=== PATIENT | female | born 2000 ===

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

== ENCOUNTER 2023-11-13 20:10 | Emergency (ER) | payer OTHER, SELFPAY ==
--- NOTE | 2023-11-13 | ECG_ITS ---
Test Reason : CP Blood Pressure : / mmHG Vent. Rate : 052 BPM Atrial Rate : 052 BPM P-R Int : 156 ms QRS Dur : 070 ms QT Int : 454 ms P-R-T Axes : 077 044 043 degrees QTc Int : 422 ms Sinus bradycardia Otherwise normal ECG No previous ECGs available Referred By: Generic ED Physician Electronically Signed By:ELVA SOLIS MD
[2023-11-13 20:54] VITALS: BP 106/68; PULSE 69; RESP 17; TEMP 36.7; O2SAT 98; BMI 26.9
[2023-11-13 21:32] LABS: Hematocrit 36.7 % (37.0-47.0); Hemoglobin 12.6 g/dl (12.0-16.0); Mean Corpuscular HGB Conc 34.3 g/dl (31.0-35.0); Mean Corpuscular Hemoglobin 30.6 pg (27.0-33.0); Mean Corpuscular Volume 89.1 fL (80.0-98.0); Mean Platelet Volume 10.8 fL (9.4-12.3); Red Blood Count 4.12 X10*6/uL (4.20-5.50); Red Cell Distribution Width 12.9 % (11.0-16.0)
[2023-11-13 21:33] LABS: WBC ABN SCTR FOR CBC 1
[2023-11-13 21:46] LABS: Alanine Aminotransferase 31 U/L (0-31); Albumin Level 4.2 g/dL (3.5-5.0); Alkaline Phosphatase 83 U/L (39-117); Anion Gap 12 (12-20); Aspartate Amino Transferase 28 U/L (5-31); Bilirubin Total 2.7 mg/dL (0.0-1.0); Blood Urea Nitrogen 13 mg/dL (9-16); Calcium 9.6 mg/dL (8.4-10.2); Carbon Dioxide 23 mmol/L (22-29); Chloride 106 mmol/L (96-108); Creatinine Clr Calc Pharmacy 96.4; Estimated Glomerular Filt Rate > 60; Glucose Random 102 mg/dL (60-115); Lipase 10 U/L (8-78); Magnesium 1.8 mg/dL (1.6-2.6); Potassium 3.3 mmol/L (3.3-5.1); Sodium 138 mmol/L (135-145); Total Protein 7.7 g/dL (6.5-8.0)
[2023-11-13 21:47] LABS: IDNOW Serial# 08D9AD1C; Influenza A Negative (Negative); Influenza B2 Negative (Negative)
[2023-11-13 21:53] LABS: Band Neutrophils Percent 0 % (3-5); Lymphocytes Percent Manual 10 % (20-40); Monocytes Percent Manual 3 % (2-11); Neutrophils Percent Manual 87 % (45-73); RBC Morphology NORMAL
[2023-11-13 21:54] LABS: Large Platelet PRESENT; Monocytes Absolute Manual 0.3 X10*3/uL (0.1-1.2); Neutrophils Absolute Manual 8.9 X10*3/uL (2.0-8.3); Platelet Count 370 X10*3/uL (160-400); Platelet Estimate NORMAL (NORMAL); Platelet Morphology Comment NORMAL; White Blood Count 10.2 X10*3/uL (4.8-10.8)
[2023-11-13 21:55] LABS: Troponin-I High Sensitivity < 2.7 ng/L (<3.5-17.0)
[2023-11-13] MEDS: 0.9 % Sodium Chloride 1,000 ML 999 ML IV ×2 (23:53→23:58)
[2023-11-13] MEDS: Ketorolac Tromethamine 15 MG/ML VIAL IVPUSH (23:57)
[2023-11-13] MEDS: ondansetron HCL 4 MG/2 ML VIAL IVPUSH (23:57)
[2023-11-14 00:01] LABS: HCG Quantitative < 2 mIU/mL
--- NOTE | 2023-11-14 00:08 | ED.NAVMDI ---
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 No CP/SOB. No GIB symptoms. She did try to go to [place] but she felt weak and dizzy and didn't want to wait. She has not traveled or been on abx. MD elicited complaint: nausea, vomiting and diarrhea Onset (ago): hour(s) (early this AM 6 or 7am) Description of vomiting: food contents, watery and bilious Description of diarrhea: watery Associated nausea: Yes Associated abdominal pain: Yes Location of pain: diffuse Radiation: diffuse Pain consistency: intermittent Severity: mild Quality: aching Exacerbating factors: eating Relieving factors: none Context: sick contacts Associated symptoms: loss of appetite, malaise and nausea/vomiting Related Data Previous Rx's Medication Instructions Recorded ondansetron 4 mg disintegrating 4 mg PO Q8H PRN nausea and 11/14/23 tablet vomiting #20 tabs Allergies Allergy/AdvReac Type Severity Reaction Status Date / Time Latex, Natural Rubber Allergy Anaphylaxis Verified 11/13/23 20:53 shellfish derived Allergy Anaphylaxis Verified 11/13/23 20:53 Review of Systems Review of Systems: Constitutional : No Weight loss, No Fever, No Chills ENT/Mouth : No sore throat, No Rhinorrhea Eyes: No Swelling, No Redness Cardiovascular : No Chest Pain, No SOB, NoEdema Respiratory : No Cough, No Sputum, No Wheezing Gastrointestinal : Positive Nausea, Positive Vomiting, positive Diarrhea, positive abdominal Pain, No Hematochezia, No Melena Genitourinary : No Dysuria, No Urinary Frequency, No Hematuria, No Urgency Musculoskeletal : No joint pain, No Myalgias, No Joint Swelling Skin : No Skin Lesions, No rash Neuro : No Weakness, No Numbness, No Dizziness, No Headache, pos syncope Psych : No Anxiety/Panic, No Depression Heme/Lymph: No Bruising, No Lymphadenopathy Endocrine : No Polyuria, No Polydipsia All other systems reviewed and are negative. Gastrointestinal: Gastrointestinal: Reports nausea PMFSH Social History Social History Advance Directives: No Advance Directives Information Provided: Yes Physical Exam Vital Signs: Vital Signs: Last Vital Signs Temp 98.0 F 11/13/23 20:54 Pulse 60 11/14/23 02:07 Resp 16 11/14/23 02:07 BP 122/65 11/14/23 02:07 Pulse Ox 98 11/14/23 02:07 O2 Del Method Room Air 11/14/23 02:07 BMI result Body Mass Index 26.9 Appearance: Alert. Oriented X3. No acute distress. Eyes: Pupils equal, round and reactive to light. ENT: Pharynx mildly dry MM Neck: Normal inspection. Neck supple. CVS: Normal heart rate and rhythm. Pulses normal. Respiratory: No respiratory distress. Breath sounds normal. Abdomen: Soft and non-tender. Skin: Skin warm and dry. Normal skin color. Normal skin turgor. Extremities: No lower extremity edema. No calf ttp Neuro: Oriented X 3. No motor deficit. No sensory deficit. Medications Administered Discontinued Medications Generic Name Dose Route Start Last Admin Trade Name Freq PRN Reason Stop Dose Admin Sodium Chloride 1,000 mls @ 999 mls/hr 11/13/23 23:45 11/14/23 00:54 Ns IV 11/14/23 00:45 Infused .Q1H1M PRICILA Infusion Sodium Chloride 1,000 mls @ 999 mls/hr 11/13/23 23:45 11/14/23 00:59 Ns IV 11/14/23 00:45 Infused .Q1H1M PRICILA Infusion Ketorolac Tromethamine 15 mg 11/13/23 23:47 11/13/23 23:57 Ketorolac Tromethamine 15 Mg/Ml Vial IVPUSH 11/13/23 23:48 15 mg ONCE ONE Administration Ondansetron HCl 4 mg 11/13/23 23:47 11/13/23 23:57 Ondansetron Hcl 4 Mg/2 Ml Vial IVPUSH 11/13/23 23:48 4 mg ONCE ONE Administration Medical Decision Making Medical Decision Making MDM Narrative: 23 yo female with no sig PMH other than prior lap cholecystectomy here with c/o n/v/d all AM then tried to get up and felt weak in bathroom no injury but notes a brief LOC lasting seconds - no CP/SOB. She still feels weak and dehydrated. 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 No GIB symptoms reported. Differential Diagnosis Differential Diagnoses: The differential diagnosis associated with the presentation includes viral syndrome, , dehydration Admission/Observation Consideration of admission/observation: Escalation of care including admission/observation considered feels much better after medications - stable for DC at this time Lab Data MDM Lab Attestation statement: I reviewed the patient's lab results. 11/13/23 21:14 11/13/23 21:14 Labs: Lab Results 11/13/23 11/14/23 Range/Units 21:14 02:23 WBC 10.2 (4.8-10.8) X10*3/uL RBC 4.12 L (4.20-5.50) X10*6/uL Hgb 12.6 (12.0-16.0) g/dl Hct 36.7 L (37.0-47.0) % MCV 89.1 (80.0-98.0) fL MCH 30.6 (27.0-33.0) pg MCHC 34.3 (31.0-35.0) g/dl RDW 12.9 (11.0-16.0) % Plt Count 370 (160-400) X10*3/uL MPV 10.8 (9.4-12.3) fL Immature Gran % (Auto) Cancelled Neut % (Auto) Cancelled Lymph % (Auto) Cancelled [place] % (Auto) Cancelled Eos % (Auto) Cancelled Baso % (Auto) Cancelled Lymph # (Auto) Cancelled [place] # (Auto) Cancelled Eos # (Auto) Cancelled Baso # (Auto) Cancelled Abs Immat Gran (auto) Cancelled Absolute Neuts (auto) Cancelled Absolute Nucleated RBC 0.000 (0.0-0.012) X10*3/uL Nucleated RBC % (auto) 0.0 (0.0-0.2) /100WBC Neutrophils % (Manual) 87 H (45-73) % Band Neutrophils % 0 L (3-5) % Lymphocytes % (Manual) 10 L (20-40) % Monocytes % (Manual) 3 (2-11) % Abs Neuts (Manual) 8.9 H (2.0-8.3) X10*3/uL Lymphocytes # (Manual) 1.0 L (1.2-4.9) X10*3/uL Monocytes # (Manual) 0.3 (0.1-1.2) X10*3/uL Platelet Estimate NORMAL (NORMAL) Large Platelets PRESENT Plt Morphology Comment NORMAL RBC Morphology NORMAL Sodium 138 (135-145) mmol/L Potassium 3.3 (3.3-5.1) mmol/L Chloride 106 (96-108) mmol/L Carbon Dioxide 23 (22-29) mmol/L Anion Gap 12 (12-20) BUN 13 (9-16) mg/dL Creatinine 0.82 (0.5-1.4) mg/dL Estim Creat Clear Calc 96.4 Estimated GFR > 60 Random Glucose 102 (60-115) mg/dL Calcium 9.6 (8.4-10.2) mg/dL Magnesium 1.8 (1.6-2.6) mg/dL Total Bilirubin 2.7 H (0.0-1.0) mg/dL AST 28 (5-31) U/L ALT 31 (0-31) U/L Alkaline Phosphatase 83 (39-117) U/L Troponin I High Sens < 2.7 (<3.5-17.0) ng/L Total Protein 7.7 (6.5-8.0) g/dL Albumin 4.2 (3.5-5.0) g/dL Lipase 10 (8-78) U/L Beta HCG, Quant < 2 mIU/mL Urine Color Dark Yellow Urine Appearance Clear Urine pH 6.5 (5.0-9.0) Ur Specific [place] >= 1.030 H (1.005-1.025) Urine Protein 30 (1+) H (Neg-Trace) mg/dL Urine Glucose (UA) Negative (Negative) mg/dL Urine Ketones 80 (Negative) mg/dL Urine Blood Negative (Negative) Urine Nitrite Negative (Negative) Ur Leukocyte Esterase Negative (Negative) Urine RBC 0-2 (0-2) /HPF Urine WBC 0-5 (0-5) /HPF Ur Squamous Epith Cells 0-2 (0-2) /HPF Urine Bacteria None Seen (None Seen) Hyaline Casts 0-2 (0-2) /LPF Influenza Type A (ZENAIDA) Negative (Negative) Influenza Type B (ZENAIDA) Negative (Negative) Influenza A & B Note See Note Independent Interpretation I performed an independent interpretation of an: EKG Interpretation: Rate: 52 Rhythm: sinus bradycardia [place]: normal Normal P waves. Normal IRIS. Normal QRS complex. ST T wave : normal no ANJELICA qTC: 422 prior studies: no acute ischemia The study has been interpreted contemporaneously by me. . Prescription Management I considered prescription management with: Other Discharge Plan Discharge Clinical Impression: Vasovagal syncope Vomiting Qualifiers: Vomiting type: unspecified Nausea presence: with nausea Qualified Code(s): R11.2 - Nausea with vomiting, unspecified Patient Disposition: Home, Self-Care Instructions: Syncope (ED), Acute Nausea and Vomiting (ED) Additional Instructions: stay hydrated and rest. advance diet slowly over 48 hours. return for worsening symptoms or concerns. repeat liver function tests with your doctor next week - bilirubin slightly up suspect vomiting and viral Prescriptions: New ondansetron 4 mg tablet,disintegrating 4 mg PO Q8H PRN (Reason: nausea and vomiting) Qty: 20 0RF Stand Alone Forms: Work/School Release Interventions: ED Discharge Assessment Last Done: 11/14/23 02:33 Discharge Date/Time: 11/14/23 02:33
[2023-11-14 00:14] VITALS: BP 120/71; PULSE 76; RESP 16; O2SAT 100
--- OUTSIDE RECORDS SUMMARY | 2023-11-14 00:41 | XMS_ITS | Continuity of Care Document ---
Author Name Unknown Organization [facility] Address [address] [place] [id number]- Care Team Providers Care Family Educator Name Role Phone Christine Wood MD Primary Care Physician [phone] Encounter [facility] Date(s): 05/26/22 - 06/25/[address] [address]- Allergies, Adverse Reactions, Alerts Substance Reaction Severity Status shellfish Active Grass Active Latex Active Medications metroNIDAZOLE 500 mg oral tablet 1 tablet = 500 mg, By Mouth, Every 12 hours, # 14 tablet, 0 Refills, Maintenance, 04/02/22 15:44:00EDT, Tablet, [id number], Partial fill upon patient request if the prescription is for a schedule II opioid drug., 158, cm, 04/01/22 14:49:00 ED... Start Date: 04/02/22 Stop Date: 04/09/22 Status: Ordered Valtrex 500 mg oral tablet 500 mg, 1, tablet, By Mouth, Daily, Take with onset of symptoms., # 90 tablet, Refills 4, Tot. Refills 4, Maintenance, 11/05/22 14:53:00 EST, Route to Pharmacy Electronically, [id number], Partial fill upon patient request if the prescription i... Start Date: 11/05/22 Status: Ordered Valtrex 500 mg oral tablet 500 mg, 1, tablet, By Mouth, Daily, # 90 tablet, Refills 4, Tot. Refills 4, Acute 11/05/22 14:53:00EST, 11/06/21 14:53:00 EST, Route to Pharmacy Electronically, [id number], Partial fill uponpatient request if the prescription is for a schedu... Start Date: 11/06/21 Stop Date: 11/05/22 Status: Ordered Xulane 150 mcg-35 mcg/24 hr transdermal film, extended release 1 patch, Topically, Every week, APPLY 1 PATCH EVERY WEEK EACH WEEK X 3 WEEKS, THEN 1 WEEK OFF DIRECTED, # 9 each, 4 Refills, Maintenance, 11/06/21 14:52:00 EST, [facility]/pharmacy #[id number], Partial fill upon patient request if the prescription is for a sche... Start Date: 11/06/21 Status: Ordered Problem List Condition Effective Dates Status Health Status Inform ant Herpes simplex(Confirmed) Active Social History Social History Type Response Smoking Status Never smoker entered on: 05/24/15 Sex
--- OUTSIDE RECORDS SUMMARY | 2023-11-14 00:41 | XMS_ITS | Continuity of Care Document ---
Author Name Unknown Organization [facility] Address [address] [place] [id number]- Care Team Providers Care Principal Security Architect Name Role Phone Christine Wood MD Primary Care Physician Encounter [facility] Date(s): 05/26/22 - 06/28/[address] [address]- Attending Physician: Vale Watts CNM Admitting Physician: Vale Watts CNM Allergies, Adverse Reactions, Alerts Substance Reaction Severity Status shellfish Active Grass Active Latex Active Medications metroNIDAZOLE 500 mg oral tablet 1 tablet = 500 mg, By Mouth, Every 12 hours, # 14 tablet, 0 Refills, Maintenance, 04/02/22 15:44:00EDT, Tablet, [facility]acy #[id number], Partial fill upon patient request if the prescription is for a schedule II opioid drug., 158, cm, 04/01/22 14:49:00 ED... Start Date: 04/02/22 Stop Date: 04/09/22 Status: Ordered Valtrex 500 mg oral tablet 500 mg, 1, tablet, By Mouth, Daily, Take with onset of symptoms., # 90 tablet, Refills 4, Tot. Refills 4, Maintenance, 11/05/22 14:53:00 EST, Route to Pharmacy Electronically, [facility]/pharmacy #[id number], Partial fill upon patient request if the prescription i... Start Date: 11/05/22 Status: Ordered Valtrex 500 mg oral tablet 500 mg, 1, tablet, By Mouth, Daily, # 90 tablet, Refills 4, Tot. Refills 4, Acute 11/05/22 14:53:00EST, 11/06/21 14:53:00 EST, Route to Pharmacy Electronically, [facility]/pharmacy #[id number], Partial fill uponpatient request if the prescription is for a schedu... Start Date: 11/06/21 Stop Date: 11/05/22 Status: Ordered Xulane 150 mcg-35 mcg/24 hr transdermal film, extended release 1 patch, Topically, Every week, APPLY 1 PATCH EVERY WEEK EACH WEEK X 3 WEEKS, THEN 1 WEEK OFF DIRECTED, # 9 each, 4 Refills, Maintenance, 11/06/21 14:52:00 EST, [facility]/pharmacy #[id number], Partial fill upon patient request if the prescription is for a sche... Start Date: 11/06/21 Status: Ordered Problem List Condition Effective Dates Status Health Status Inform ant Herpes simplex(Confirmed) Active Social History Social History Type Response Smoking Status Never smoker entered on: 05/24/15 Sex Care Team Personnel Name: Christine Wood MD Address: [address] [place] [address]
--- OUTSIDE RECORDS SUMMARY | 2023-11-14 00:41 | XMS_ITS | Continuity of Care Document ---
Author Name Unknown Organization [facility] Address [address] [place] [id number]- Care Team Providers Care Liquor Grinder Mill Operator Name Role Phone Christine Wood MD Primary Care Physician [phone] [facility] Date(s): 03/31/21 - 04/07/[address] [id number] Attending Physician: Chani Birmingham MD Allergies, Adverse Reactions, Alerts Substance Reaction Severity Status shellfish Active Grass Active Latex Active Medications Xulane 150 mcg-35 mcg/24 hr transdermal film, extended release APPLY 1 PATCH EVERY WEEK EACH WEEK X 3 WEEKS, THEN 1 WEEK OFF DIRECTED Start Date: 10/14/20 Status: Ordered Zofran 4 mg oral tablet 1 tablet = 4 mg, By Mouth, Every 8 hours, # 6 tablet, 0 Refills, Maintenance, 10/11/20 16:20:00 EST, Tablet, [id number], Partial fill upon patient request if the prescription is for a schedule II opioid drug., 158, cm, 10/11/20 13:41:00 EST, H... Start Date: 10/11/20 Status: Ordered Results Orders for Microbiology Reports Name Date Urine Culture (URINE CULTURE) 03/01/21 Microbiology Reports TEST:Urine Culture STATUS:Auth (Verified) BODY SITE: SOURCE:URINE COLLECTED DATE/TIME:03/01/21 9:45 AM Urine Culture SPECIMEN DESCRIPTION : URINE SPECIAL REQUESTS : NONE CULTURE : NO GROWTH REPORT STATUS : FINAL 03/05/2021 Social History Social History Type Response Smoking Status Never smoker entered on: 05/24/15 Sex
--- OUTSIDE RECORDS SUMMARY | 2023-11-14 00:41 | XMS_ITS | Continuity of Care Document ---
Author Name Unknown Organization [facility] Address [address] [place] [address]- Care Team Providers Care Passenger Representative Name Role Phone Not on Staff, PCP Primary Care Physician Unavail able Encounter [facility] Date(s): 06/27/23 - 06/27/[address] [address]- Discharge Disposition: A-D/C Home Attending Physician: Johnson Del Cid MD Admitting Physician: Johnson Del Cid MD Referring Physician: Not on Staff, Referring MD Allergies, Adverse Reactions, Alerts Substance Reaction Severity Status shellfish Active Grass Active Latex Active Immunizations Given and Recorded Vaccine Date Status Refusal Reason tetanus/diphtheria/pertussis, acel(Tdap) 07/12/21 Recorded Hepatitis A Pediatric Vaccine 06/20/20 Recorded Hepatitis A Pediatric Vaccine 11/25/19 Recorded meningococcal group B vaccine 02/22/20 Recorded meningococcal group B vaccine 11/25/19 Recorded Meningococcal Conjugate Vaccine 11/25/19 Recorded Human Papillomavirus Vaccine 11/25/19 Recorded Medications metronidazole topical 0.75% gel with applicator 1 application, Vaginally, Daily at bedtime, # 70 Gm, 0 Refills, Soft Stop, 04/15/23 13:46:00 EDT, Gel, [facility]/pharmacy #[id number], Partial fill upon patient request if the prescription is for a schedule II opioid drug., 1 application Vaginally Daily at bedtim... Start Date: 04/15/23 Stop Date: 04/20/23 Status: Ordered Valtrex 500 mg oral tablet 500 mg, 1, tablet, By Mouth, Daily, Take with onset of symptoms., # 90 tablet, Refills 4, Tot. Refills 4, Maintenance, 11/05/22 14:53:00 EST, Route to Pharmacy Electronically, [facility]/pharmacy #[id number], Partial fill upon patient request if the prescription i... Start Date: 11/05/22 Status: Ordered Xulane 150 mcg-35 mcg/24 hr transdermal film, extended release 1 film, Topically, Once, Maintenance, # 3 each, 11 Refills, Soft Stop, 01/16/23 8:55:00 EDT, [facility]/pharmacy #[id number], Partial fill upon patient request if the prescription is for a schedule II opioid drug., 1 film Topically Once,Instr:Maintenance, 160, cm,... Start Date: 01/16/23 Status: Ordered Problem List Condition Confirmation Course Effective Dates Status Health St atus Informant COVID-19 1 Confirmed 11/07/22 Active Herpes simplex Confirmed Active 1Problem added by Discern Expert Vital Signs Most recent to oldest [Reference Range]: 1 2 Height 160 cm (06/27/23 9:39 AM) 160 cm (06/27/23 9:38 AM) Weight 69.7 kg (06/27/23 9:39 AM) 69.7 kg (06/27/23 9:38 AM) Oxygen Saturation [94-100 %] 98 % (06/27/23 12:22 PM) 98 % (06/27/23 9:39 AM) Pulse Rate [55-90 bpm] 89 bpm (06/27/23 12:22 PM) 90 bpm (06/27/23 9:39 AM) Body Mass Index [18.5-24.99 kg/m2] 27.23 kg/m2 *H* (06/27/23 9:38 AM) Blood Pressure [90-138/55-84 mm Hg] 119/ 99mm Hg (06/27/23 12:22 PM) 116/73mm Hg (06/27/23 9:39 AM) Respiratory Rate [16-30 br/min] 17 br/mi n (06/27/23 12:22 PM) 18 br/min (06/27/23 9:39 AM) Temperature [96.8-100.4 DegF] 98 DegF (06/27/23 9:39 AM) Mode of Delivery (Oxygen) Room air (06/27/23 12:22 PM) Room air (06/27/23 9:39 AM) Blood pressure sites Arm, left (06/27/23 12:22 PM) Arm, left (06/27/23 9:39 AM) Temperature Route Temporal (06/27/23 9:39 AM) Dry Weight 69.7 kg (06/27/23 9:39 AM) 69.7 kg (06/27/23 9:38 AM) Dry Weight Obtained Via Standing scale (06/27/23 9:38 AM) Social History Social History Type Response Smoking Status Never smoker entered on: 05/24/15 Sex Note * Phan English: PERFORM Event Display: Patient Education Leaflets Authored Date: [id number] Hives (Adult) ?? [id number] Hives (Adult) Hives are pink or red bumps on the skin. These bumps are also known as wheals. The bumps can itch, burn, or sting. Hives can occur anywhere on the body. They vary in size and shape and can form in clusters. Individual hives can appear and go away quickly. New hives may develop as old ones fade. Hives are common and usually harmless. They are not contagious. Occasionally, hives are a sign of a serious allergy. Hives may be caused by an allergic reaction. They may occur from: ??? Certain foods, such as shellfish, nuts, tomatoes, or berries ??? Contact with something in the environment, such as pollens, animals, or mold ??? Certain medicines ??? Sun or cold air ??? Viral infections, such as a cold or the flu ??? Bacterial infection, such as strep throat If the hives continue to come and go over many weeks without any other symptoms (chronic hives), the cause may be very hard to figure out. You may be prescribed medicines to ease swelling and itching. Follow all instructions when using these medicines. The hives will usually fade in a few days. But they can last for weeks or months. Home care Follow these tips: ??? Try to find the cause of the hives and eliminate it. Discuss possible causeswith your healthcare provider. Your healthcare provider may ask you to keep track of the food you eat and your lifestyle to help find the cause of the hives. ??? Don???t scratch the hives. Scratchingwill delay healing. To reduce itching, apply cool, wet compresses to the skin. ??? Dress in soft, loose cotton clothing. ??? Don???t bathe in hot water. This can make the itching worse. ??? Apply an ice pack or cool pack wrapped in a thin towel to your skin. This will help reduce redness and itching. But if your hives were caused by exposure to cold, then do not apply more cold to them. ??? You may use over-the counter antihistamines to reduce itching. Some older antihistamines, such as diphenhydramine and chlorpheniramine, are inexpensive. But they need to be taken often and may make you sleepy. They are best used at bedtime. Don???t use diphenhydramine if you have glaucoma or have troubleurinating because of an enlarged prostate. Newer antihistamines, such as loratadine, cetirizine, lev ocetirizine, and fexofenadine, are generally more expensive. But they tend to have fewer side effects. They can be taken less often. ??? Another type of antihistamine is used to treat heartburn. Thistype includes nizatidine, famotidine, and cimetidine. These are sometimes used along with the above antihistamines if a single medicine is not working. ??? If the hives are severe and you do not respond well to other medicines, you may be given a steroid, such as prednisone, to take for a short time. Follow all instructions carefully when taking this medicine. Tell your healthcare provider about any side effects. ?? Follow-up care Follow up with your healthcare provider if your symptoms don't get better in 2 days. Ask your provider about allergy testing if you have had a severe reaction or have had several episodes of hives. Allergy testing may help figure out what you are allergic to. You may need blood tests, a urine test,or skin tests. ?? When to get medical advice Call your healthcare provider right away??if any of these occur: ??? Fever of 100.4??F (38.0??C) orhigher, or as advised ??? Redness, swelling, or pain ??? Bad-smelling fluid coming from the rash ?? Call 911 Call 911 if any of the following occur: ??? Swelling of the face, throat, or tongue ??? Trouble breathing or swallowing ??? Dizziness, weakness, or fainting ??? Coughing that won't stop ?? Last Reviewed Date: 2021 ?? [id number] [employer]. All rights reserved. This information is not intended as a substitute for professional medical care. Always follow your healthcare professional's instructions. ?? Patient Care team information Care Team Personnel Name: Not on Staff, PCP Position: [facility] Physician (General Medicine) Member Role: PCP Name: Johnson Del Cid MD Position: [facility] ED Medicine MD Member Role: Admitting Physician Address: Address: [address] [place] [id number] Name: Phan English Position: [facility] Associate Professional Member Role: ED Physician Liability Claims Representative Address: Address: [address] [place] [id number] Name: Parris Foy RN Position: [facility] ED RN W/OE and Tasks Member Role: Patient Care Provider Care Team Related Persons Name: RICARDO MITCHELL Name: DAVID JULIO Address: [address] [place] [address] Name: KRISTIE ALVARADO Address: [address] [place] [address] Name: LARRY ARCE Address: [address] [place] [address] Name: SERGIO GRIFFIN
--- OUTSIDE RECORDS SUMMARY | 2023-11-14 00:41 | XMS_ITS | Continuity of Care Document ---
Author Name Unknown Organization [facility] Address [address] [place] [address]- Care Team Providers Care Lumber Tying Machine Operator Name Role Phone Not on Staff, PCP Primary Care Physician Unavail able [facility] Date[facility]): [facility] [address] [address] Attending Physician: AdmtrJohnathon Admitting Physician: AdmtrJohnathon Referring Physician: Admtr, Ar8 Allergies, Adverse Reactions, Alerts Substance Reaction Severity [...] Refills, Soft Stop, 04/15/23 13:46:00 EDT, Gel, [facility]/pharmacy #[id number], Partial fill upon patient request if the prescription is for a schedule II opioid drug., 1 application Vaginally Daily at bedtim... Start Date: 04/15/23 Stop Date: 04/20/23 Status: Ordered Valtrex 500 mg oral tablet 500 mg, 1, tablet, By Mouth, Daily, Take with onset of symptoms., # 90 tablet, Refills 4, Tot. Refills 4, Maintenance, 11/05/22 14:53:00 EST, Route to Pharmacy Electronically, [facility]/pharmacy #[id number], Partial fill upon patient request if the prescription i... Start Date: 11/05/22 Status: Ordered Xulane 150 mcg-35 mcg/24 hr transdermal film, extended release 1 film, Topically, Once, Maintenance, # 3 each, 11 Refills, Soft Stop, 01/16/23 8:55:00 EDT, [facility]/pharmacy #[id number], Partial fill upon patient request if the prescription is for a schedule II opioid drug., 1 film Topically Once,Instr:Maintenance, 160, cm,... Start Date: 01/16/23 Status: Ordered Problem List Condition Confirmation Course Effective Dates Status Health St atus Informant COVID-19 1 Confirmed 11/07/22 Active Herpes simplex Confirmed Active 1Problem added by Discern Expert Social History Social History Type Response Smoking Status Never smoker entered on: 05/24/15 Sex Patient Care team information Care Team Personnel Name: Not on Staff, PCP Position: S Physician (General Medicine) Member Role: PCP Care Team Related Persons Name: RICARDO MITCHELL Name: DAVID JULIO Address: [address] [place] [address] Name: KRISTIE ALVARADO Address: [address] [place] [address] Name: LARRY ARCE Address: [address] [place] [address] Name: SERGIO GRIFFIN
--- OUTSIDE RECORDS SUMMARY | 2023-11-14 00:41 | XMS_ITS | Continuity of Care Document ---
Author Name Unknown Organization [facility] Address [address] [place] [address]- Care Team Providers Care Cigar Head Piercer Name Role Phone Christine Wood MD Primary Care Physician Encounter [facility] Date(s): 10/17/20 - 11/16/[address] [address] Attending Physician: AdmJohnathon tellez Admitting Physician: AdmtrJohnathon Referring Physician: Admtr, Ar8 Allergies, Adverse Reactions, Alerts Substance Reaction Severity Status shellfish Active Grass Active Latex Active Medications Valtrex 500 mg oral tablet 500 mg, 1, tablet, By Mouth, Daily, for 30 days, # 90 tablet, Refills 4, Tot. Refills 4, Acute 03/16/21 12:04:00 EDT, 10/17/20 12:04:00 EST, Route to Pharmacy Electronically, [facility]/pharmacy #[id number], Partial fill upon patient request if the prescription is... Start Date: 10/17/20 Stop Date: 03/16/21 Status: Ordered Xulane 150 mcg-35 mcg/24 hr transdermal film, extended release APPLY 1 PATCH EVERY WEEK EACH WEEK X 3 WEEKS, THEN 1 WEEK OFF DIRECTED Start Date: 10/14/20 Status: Ordered Zofran 4 mg oral tablet 1 tablet = 4 mg, By Mouth, Every 8 hours, # 6 tablet, 0 Refills, Maintenance, 10/11/20 16:20:00 EST, Tablet, [id number], Partial fill upon patient request if the prescription is for a schedule II opioid drug., 158, cm, 10/11/20 13:41:00 EST, H... Start Date: 10/11/20 Status: Ordered Social History Social History Type Response Smoking Status Never smoker entered on: 05/24/15 Sex
--- OUTSIDE RECORDS SUMMARY | 2023-11-14 00:41 | XMS_ITS | Continuity of Care Document ---
Author Name Unknown Organization [facility] Address [address] [place] [address]- Care Team Providers Care Supervisor Tan Room Name Role Phone Not on Staff, PCP Primary Care Physician Unavail able Encounter [facility] Date(s): 06/15/23 - 07/15/[address] [address]- Allergies, Adverse Reactions, Alerts Substance Reaction Severity [...] Refills, Soft Stop, 04/15/23 13:46:00 EDT, Gel, [facility]/pharmacy #[id number], Partial fill upon patient request if the prescription is for a schedule II opioid drug., 1 application Vaginally Daily at bedtim... Start Date: 04/15/23 Stop Date: 04/20/23 Status: Ordered Valtrex 500 mg oral tablet 500 mg, 1, tablet, By Mouth, Daily, Take with onset of symptoms., # 90 tablet, Refills 4, Tot. Refills 4, Maintenance, 11/05/22 14:53:00 EST, Route to Pharmacy Electronically, [facility]/pharmacy #[id number], Partial fill upon patient request if the prescription i... Start Date: 1/4/23 Status: Ordered Xulane 150 mcg-35 mcg/24 hr transdermal film, extended release 1 film, Topically, Once, Maintenance, # 3 each, 11 Refills, Soft Stop, 01/16/23 8:55:00 EDT, [facility]/pharmacy #[id number], Partial fill upon patient request if the [...] Personnel Name: Not on Staff, PCP Position: [facility] Physician (General Medicine) Member Role: PCP Care Team Related Persons Name: RICARDO MITCHELL Name: DAVID JULIO Address: home [address] [place] [address] Name: KRISTIE ALVARADO Address: home [address] [place] [address] Name: LARRY ARCE Address: home [address] [place] [address] Name: SERGIO GRIFFIN
--- OUTSIDE RECORDS SUMMARY | 2023-11-14 00:41 | XMS_ITS | Continuity of Care Document ---
Author Name Unknown Organization [facility] Address [address] [place] [address]- Care Team Providers Care Automation Controls Engineer Name Role Phone Christine Wood MD Primary Care Physician [phone] Encounter [facility] Date(s): 10/16/19 - 10/16/[address] [address]- [facility] Discharge Disposition: A-D/C Home Attending Physician: Coleman Méndez MD Admitting Physician: Coleman Méndez MD Referring Physician: Not on Staff, Referring MD Allergies, Adverse Reactions, Alerts Substance Reaction Severity Status shellfish Active Medications Cipro 500 mg oral tablet 1 tablet = 500 mg, By Mouth, Every 12 hours, for 7 days, # 14 tablet, 0 Refills, Acute 10/23/19 15:03:40 EST, 10/16/19 15:03:40 EST, Tablet, [id number], 158, cm, 10/16/19 12:05:27 EST, Height, 71.4, kg, 10/16/19 12:05:27 EST, Dry Weight Start Date: 10/16/19 Stop Date: 10/23/19 Status: Ordered Pyridium 200 mg oral tablet 1 tablet = 200 mg, By Mouth, 3 times a day, # 9 tablet, 0 Refills, Maintenance, 10/16/19 15:37:53 EST, Tablet, [id number], 158, cm, 10/16/19 12:05:27 EST, Height, 71.4, kg, 10/16/19 12:05:27 EST, Dry Weight Start Date: 10/16/19 Stop Date: 10/19/19 Status: Ordered Results Orders for Microbiology Reports Name Date Urine Culture (URINE CULTURE) 10/16/19 Microbiology Reports TEST:Urine Culture STATUS:Unauthenticated BODY SITE: SOURCE:URINE COLLECTED DATE/TIME:10/16/19 1:40 PM Urine Culture SPECIMEN DESCRIPTION : URINE SPECIAL REQUESTS : NONE Reflexed from [id number] REPORT STATUS : PRELIMINARY REPORT Vital Signs Most recent to oldest [Reference Range]: 1 2 3 Height 158 cm (10/16/19 3:38 PM) 158 cm (10/16/19 12:05 PM) Weight 71.4 kg (10/16/19 3:38 PM) 71.4 kg (10/16/19 12:05 PM) Oxygen Saturation [94-100 %] 100 % (10/16/19 3:38 PM) 100 % (10/16/19 12:05 PM) Pulse Rate [55-90 bpm] 75 bpm (10/16/19 3:38 PM) 75 bpm (10/16/19 12:05 PM) Body Mass Index [18.5-24.99] 28.6 *H* (10/16/19 3:38 PM) Blood Pressure [71-110/30-71 mm Hg] 108/72mm Hg (10/16/19 3:38 PM) 114/86mm Hg *H* (10/16/19 12:05 PM) Respiratory Rate [16-30 br/min] 16 br/min (10/16/19 3:38 PM) 14 br/min *L* (10/16/19 2:42 PM) 17 br/min (10/16/19 12:05 PM) Temperature [96.8-100.4 DegF] 98.1 DegF (10/16/19 12:05 PM) Mode of Delivery (Oxygen) Room air (10/16/19 3:38 PM) Room air (10/16/19 12:05 PM) Temperature Route Oral (10/16/19 12:05 PM) Dry Weight 71.4 kg (10/16/19 3:38 PM) 71.4 kg (10/16/19 12:05 PM) Dry Weight Obtained Via Standing scale (10/16/19 12:05 PM) Social History Social History Type Response Smoking Status Never smoker entered on: 05/24/15 Sex
--- OUTSIDE RECORDS SUMMARY | 2023-11-14 00:41 | XMS_ITS | Continuity of Care Document ---
Author Name Unknown Organization [facility] Address [address] [place] [address]- Care Team Providers Care Rn Residential Name Role Phone Christine Wood MD Primary Care Physician [place] [facility] Date(s): 11/04/21 - 12/05/[address] [address]- Attending Physician: Not on Staff, Attending MD Allergies, Adverse Reactions, Alerts Substance Reaction Severity Status shellfish Active Grass Active Latex Active Medications Valtrex 500 mg oral tablet 500 mg, 1, tablet, By Mouth, Daily, # 90 tablet, Refills 4, Tot. Refills 4, Acute 11/05/22 14:53:00EST, 11/06/21 14:53:00 EST, Route to Pharmacy Electronically, [facility]/pharmacy #[id number], Partial fill uponpatient request if the prescription is for a schedu... Start Date: 11/06/21 Stop Date: 11/05/22 Status: Ordered Xulane 150 mcg-35 mcg/24 hr transdermal film, extended release 1 patch, Topically, Every week, APPLY 1 PATCH EVERY WEEK EACH WEEK X 3 WEEKS, THEN 1 WEEK OFF DIRECTED, # 9 each, 4 Refills, Maintenance, 11/06/21 14:52:00 EST, [id number], Partial fill upon patient request if the prescription is for a sche... Start Date: 11/06/21 Status: Ordered Problem List Condition Effective Dates Status Health Status Inform ant Herpes simplex(Confirmed) Active Social History Social History Type Response Smoking Status Never smoker entered on: 05/24/15 Sex
--- OUTSIDE RECORDS SUMMARY | 2023-11-14 00:42 | XMS_ITS | Continuity of Care Document ---
Author Name Unknown Organization [facility] Address [address] [place] [address]- Care Team Providers Care Auto Transmission Technician Name Role Phone Christine Wood MD Primary Care Physician [place] [facility] Date(s): 11/04/21 - 12/04/[address] [address]- Allergies, Adverse Reactions, Alerts Substance Reaction Severity [...]
--- OUTSIDE RECORDS SUMMARY | 2023-11-14 00:42 | XMS_ITS | Continuity of Care Document ---
Author Name Unknown Organization [facility] Address [address] [place] [address]- Care Team Providers Care Roving Carrier Name Role Phone Not on Staff, PCP Primary Care Physician Unavail able Encounter [facility] Date(s): 06/16/23 - 06/16/[address] [address]- Discharge Disposition: A-D/C Home Attending Physician: Coleman Deng MD Admitting Physician: Coleman Deng MD Referring Physician: Not on Staff, Referring [...] Recorded Human Papillomavirus Vaccine 11/25/19 Recorded Medications Bactrim DS 800 mg-160 mg oral tablet 1 tablet, By Mouth, 2 times a day, for 10 days, # 20 tablet, 0 Refills, Acute 06/26/23 14:40:00 EDT, 06/16/23 14:40:00 EDT, Tablet, [id number], Partial fill upon patient request if the prescription is for a schedule II opioid drug., 1 tablet B... Start Date: 06/16/23 Stop Date: 06/26/23 Status: Ordered metronidazole topical 0.75% gel with applicator 1 application, Vaginally, Daily at bedtime, # 70 Gm, 0 Refills, Soft Stop, 04/15/23 13:46:00 EDT, Gel, [id number], Partial fill upon patient request if the prescription is for a schedule II opioid drug., 1 application Vaginally Daily at bedtim... Start Date: 04/15/23 Stop Date: 04/20/23 Status: Ordered Pyridium 100 mg oral tablet 1 tablet = 100 mg, By Mouth, 3 times a day, for 3 days, # 9 tablet, 0 Refills, Acute 06/19/23 14:40:00 EDT, 06/16/23 14:40:00 EDT, Tablet, [facility]/pharmacy #[id number], Partial fill upon patient request if theprescription is for a schedule II opioid drug., 160... Start Date: 06/16/23 Stop Date: 06/19/23 Status: Ordered Valtrex 500 mg oral tablet 500 mg, 1, tablet, By Mouth, Daily, Take with onset of symptoms., # 90 tablet, Refills 4, Tot. Refills 4, Maintenance, 11/05/22 14:53:00 EST, Route to Pharmacy Electronically, [facility]/pharmacy #[id number], Partial fill upon patient request if the prescription i... Start Date: 11/05/22 Status: Ordered Xulane 150 mcg-35 mcg/24 hr transdermal film, extended release 1 film, Topically, Once, Maintenance, # 3 each, 11 Refills, Soft Stop, 01/16/23 8:55:00 EDT, [id number], Partial fill upon patient request [...] oldest [Reference Range]: 1 2 3 Height 160 cm (06/16/23 2:26 PM) 160 cm (06/16/23 1:10 PM) Weight 71.6 kg (06/16/23 1:10 PM) Oxygen Saturation [94-100 %] 100 % (06/16/23 2:26 PM) 98 % (06/16/23 1:10 PM) Pulse Rate [55-90 bpm] 61 bpm (06/16/23 2:26 PM) 72 bpm (06/16/23 1:10 PM) 88 bpm (06/16/23 1:08 PM) Blood Pressure [90-138/55-84 mm Hg] 114/73mm Hg (06/16/23 2:26 PM) 127/88mm Hg (06/16/23 1:10 PM) Respiratory Rate [16-30 br/min] 16 br/min (06/16/23 1:10 PM) 16 br/min (06/16/23 1:08 PM) Temperature [96.8-100.4 DegF] 98.0 DegF (06/16/23 1:10 PM) Mode of Delivery (Oxygen) Room air (06/16/23 2:26 PM) Room air (06/16/23 1:10 PM) Room air (06/16/23 1:08 PM) Temperature Route Temporal (06/16/23 1:10 PM) Dry Weight 71.6 kg (06/16/23 1:10 PM) Social History Social History Type Response Smoking Status Never smoker entered on: 05/24/15 Sex Note * Olga Zavala: PERFORM Event Display: Patient Education Leaflets Authored Date: [id number] Urinary Tract Infections in Women ?? [id number] Urinary Tract Infections in Women Urinary tract infections (UTIs) are most often caused by bacteria. These bacteria enter the urinarytract. The bacteria may come from inside the body. Or they may travel from the skin outside the rectum or vagina into the urethra. Female anatomy makes it easy for bacteria from the bowel to enter a woman???s urinary tract. This is the most common source of UTI. This means women develop UTIs more often than men. Pain in or around the urinary tract is a common UTI symptom. Most UTIs are treated with antibiotics. These kill the bacteria. The length of time you need to take them depends on the type of infection. It may be as short as 3 days. If you have repeated UTIs, you may need a low-dose antibiotic for several months. Take antibiotics exactly as directed. Don???t stop taking them until all of the medicine is gone. If you stop taking the antibiotic too soon, the infection may not go away. You may also develop a resistance to the antibiotic. This can make it muchharder to treat in the future. Gender words are used here to talk about anatomy and health risk. Please use this information in a way that works best for you and your provider as you talk about your care. Home care The lifestyle changes below will help get rid of your UTI. They may also help prevent future UTIs: ??? Drink plenty of fluids. This includes water, juice, or other caffeine-free drinks. Fluids help flush bacteria out of your body. ??? Empty your bladder. Always empty your bladder when you feel the urge to pee. And always pee before going to sleep. Urine that stays in your bladder can lead to infection. Try to pee before and after sex as well. ??? Practice good personal hygiene. Wipe yourself from front to back after using the toilet. This helps keep bacteria from getting into the urethra. ???Use condoms during sex. These help prevent UTIs caused by sexually transmitted bacteria. Also don'tuse spermicides during sex. These can increase the risk for UTIs. Choose other forms of control instead. For women who tend to get UTIs after sex, a low dose of a preventive antibiotic may be used. Be sure to discuss this choice with your healthcare provider. ??? Try holistic supplements, such as cranberry tablets and D-mannose. These may help prevent UTIs. ??? Try topical vaginal estrogen.You can use this to help prevent UTIs if you have gone through menopause. ?? Follow-up care Follow up with your healthcare provider as directed. They may test to make sure the infection has cleared. If needed, more treatment may be started. ?? When to get medical advice Call your healthcare provider right away if any of the following occur: ??? Frequent urination ??? Pain or burning when passing urine ??? Fever of 100.4??F (38??C) or higher, or as directed by your healthcare provider ??? Urine looks dark, cloudy, or reddish in color. This may mean that blood is inthe urine. ??? Urine smells bad ??? Feeling pain even when not urinating ??? Tiredness ??? Pain in the belly (abdomen) area below the bellybutton, or in the back or side, below the ribs ??? Nausea orvomiting ??? Have a strong urge to urinate, but only a small amount of urine is passed ??? Uncomfortable pressure above the pubic bone ??? Feeling confused or very tired (in older adults) ?? Last Reviewed Date: 2022 ?? [id number] [employer]. All rights reserved. This information is not intended as a substitute for professional medical care. Always follow your healthcare professional's instructions. ?? Patient Care team information Care Team Personnel Name: Not on Staff, PCP Position: [facility] Physician (General Medicine) Member Role: PCP Name: Olga Zavlaa Position: [facility] Associate Professional Member Role: ED Physician Bell Clerk Address: Address: [address] [place] [address] [place] [address]- Name: Coleman Deng MD Position: [facility] ED Medicine MD Member Role: Admitting Physician Address: Address: [address] [place] [address]-[place] [address]- Name: Zenaida Gilmore RN Position: [facility] ED RN W/OE and Tasks Member Role: Patient Care Provider Care Team Related Persons Name: RICARDO MITCHELL Name: DAVID JULIO Address: [address] [place] [address] Name: KRISTIE ALVARADO Address: [address] [place] [address] Name: LARRY ARCE Address: [address] [place] [address] Name: SERGIO GRIFFIN
--- OUTSIDE RECORDS SUMMARY | 2023-11-14 00:42 | XMS_ITS | Continuity of Care Document ---
Author Name Unknown Organization [facility] Address [address] [place] [address]- Care Team Providers Care Wired Sweatband Cutter Name Role Phone Christine Wood MD Primary Care Physician [place] [facility] Date(s): 11/04/21 - 12/07/[address] [address]- Attending Physician: Not on Staff, Attending MD Allergies, Adverse Reactions, Alerts Substance Reaction Severity Status shellfish Active Grass Active Latex Active Medications Valtrex 500 mg oral tablet 500 mg, 1, tablet, By Mouth, Daily, # 90 tablet, Refills 4, Tot. Refills 4, Acute 11/05/22 14:53:00EST, 11/06/21 14:53:00 EST, Route to Pharmacy Electronically, [facility]/pharmacy #[id number], Partial fill uponpatient request if the [...]
--- OUTSIDE RECORDS SUMMARY | 2023-11-14 00:42 | XMS_ITS | Continuity of Care Document ---
Author Name Unknown Organization [facility] Address [address] [place] [address]- Care Team Providers Care Jewelry Repairer Name Role Phone Not on Staff, PCP Primary Care Physician Unavail able [facility]counter [facility] Date(s): 06/19/23 - 07/19/23 [facility] [address] [address] Attending Physician: AdmJohnathon tellez Admitting Physician: AdmtrJohnathon [...] Refills, Soft Stop, 04/15/23 13:46:00 EDT, Gel, [facility]/pharmacy #[id number], Partial fill upon patient request [...] 11/05/22 14:53:00 EST, Route to Pharmacy Electronically, [facility]/pharmacy #[id number], Partial fill upon patient request if the prescription i... Start Date: 11/05/22 Status: Ordered Xulane 150 mcg-35 mcg/24 hr transdermal film, extended release 1 film, Topically, Once, Maintenance, # 3 each, 11 Refills, Soft Stop, 01/16/23 8:55:00 EDT, [facility]/pharmacy #[id number], Partial fill upon patient request [...] MITCHELL Name: DAVID JULIO Address: [address] [place] [address] Name: KRISTIE ALVARADO Address: [address] [place] [address] Name: LARRY ARCE Address: [address] [place] [address] Name: SERGIO GRIFFIN
--- OUTSIDE RECORDS SUMMARY | 2023-11-14 00:42 | XMS_ITS | Continuity of Care Document ---
Author Name Unknown Organization [facility] Address [address] [place] [address]- Care Team Providers Care Patient Financial Representative Name Role Phone Christine Wood MD Primary Care Physician Encounter [facility] Date(s): 10/11/20 - 10/11/[address] [address]- Discharge Disposition: A-D/C Home Attending Physician: Kenneth Mills MD Admitting Physician: Kenneth Mills MD Referring Physician: Not on Staff, Referring MD Allergies, Adverse Reactions, Alerts Substance Reaction Severity Status shellfish Active Medications Pyridium 200 mg oral tablet 1 tablet = 200 mg, By Mouth, 3 times a day, # 9 tablet, 0 Refills, Maintenance, 10/16/19 15:37:53 EST, Tablet, [id number], 158, cm, 10/16/19 12:05:27 EST, Height, 71.4, kg, 10/16/19 12:05:27 EST, Dry Weight Start Date: 10/16/19 Stop Date: 10/19/19 Status: Ordered Zofran 4 mg oral tablet 1 tablet = 4 mg, By Mouth, Every 8 hours, # 6 tablet, 0 Refills, Maintenance, 10/11/20 16:20:00 EST, Tablet, [id number], Partial fill upon patient request if the prescription is for a schedule II opioid drug., 158, cm, 10/11/20 13:41:00 EST, H... Start Date: 10/11/20 Status: Ordered Vital Signs Most recent to oldest [Reference Range]: 1 2 Height 158 cm (10/11/20 4:24 PM) 158 cm (10/11/20 1:41 PM) Oxygen Saturation [94-100 %] 99 % (10/11/20 4:24 PM) 100 % (10/11/20 1:41 PM) Pulse Rate [55-90 bpm] 72 bpm (10/11/20 4:24 PM) 70 bpm (10/11/20 1:41 PM) Blood Pressure [90-138/55-84 mm Hg] 122/ 77mm Hg (10/11/20 4:24 PM) 127/72mm Hg (10/11/20 1:41 PM) Respiratory Rate [16-30 br/min] 16 br/mi n (10/11/20 4:24 PM) 20 br/min (10/11/20 1:41 PM) Temperature [96.8-100.4 DegF] 98.1 DegF (10/11/20 4:24 PM) 98.8 DegF (10/11/20 1:41 PM) Mode of Delivery (Oxygen) Room air (10/11/20 4:24 PM) Room air (10/11/20 1:41 PM) Blood pressure sites Arm, left (10/11/20 4:24 PM) Arm, left (10/11/20 1:41 PM) Temperature Route Oral (10/11/20 4:24 PM) Oral (10/11/20 1:41 PM) Social History Social History Type Response Smoking Status Never smoker entered on: 05/24/15 Sex
--- OUTSIDE RECORDS SUMMARY | 2023-11-14 00:42 | XMS_ITS | Continuity of Care Document ---
Author Name Unknown Organization [facility] Address [address] [place] [address]- Care Team Providers Care Water Supervisor Name Role Phone Christine Wood MD Primary Care Physician En[place] [facility] [place](s): 04/02/22 - 05/02/[address] [address]- Allergies, Adverse Reactions, Alerts Substance Reaction Severity Status shellfish Active Grass Active Latex Active Medications metroNIDAZOLE 500 mg oral tablet 1 tablet = 500 mg, By Mouth, Every 12 hours, # 14 tablet, 0 Refills, Maintenance, 04/02/22 15:44:00EDT, Tablet, [facility]/pharmacy #[id number], Partial fill upon patient request if the prescription is for a schedule II opioid drug., 158, cm, 04/01/22 14:49:00 ED... Start Date: 04/02/22 Stop Date: 04/09/22 Status: Ordered Valtrex 500 mg oral tablet 500 mg, 1, tablet, By Mouth, Daily, Take with onset of symptoms., # 90 tablet, Refills 4, Tot. Refills 4, Maintenance, 11/05/22 14:53:00 EST, Route to Pharmacy Electronically, [facility]/pharmacy #[id number], Partial fill upon patient request if the prescription i... Start Date: 11/05/22 Status: Ordered Valtrex 500 mg oral tablet 500 mg, 1, tablet, By Mouth, Daily, # 90 tablet, Refills 4, Tot. Refills 4, Acute 11/05/22 14:53:00EST, 11/06/21 14:53:00 EST, Route to Pharmacy Electronically, [facility]/pharmacy #[id number], Partial fill uponpatient request if the prescription is for a schedu... Start Date: 11/06/21 Stop Date: 11/05/22 Status: Ordered Xulane 150 mcg-35 mcg/24 hr transdermal film, extended release 1 patch, Topically, Every week, APPLY 1 PATCH EVERY WEEK EACH WEEK X 3 WEEKS, THEN 1 WEEK OFF DIRECTED, # 9 each, 4 Refills, Maintenance, 11/06/21 14:52:00 EST, [facility]/pharmacy #[id number], Partial fill upon patient request if the prescription is for a sche... Start Date: 11/06/21 Status: Ordered Problem List Condition Effective Dates Status Health Status Inform ant Herpes simplex(Confirmed) Active Obese class I(Confirmed) Active Social History Social History Type Response Smoking Status Never smoker entered on: 05/24/15 Sex
--- OUTSIDE RECORDS SUMMARY | 2023-11-14 00:42 | XMS_ITS | Continuity of Care Document ---
Author Name Unknown Organization [facility] Address [address] [place] [address]- Care Team Providers Care Shoe Parts Caser Name Role Phone Christine Wood MD Primary Care Physician Encounter [facility] Date(s): 08/03/23 - 09/02/23 [facility] [address] [address]- Allergies, Adverse Reactions, Alerts Substance Reaction Severity [...] Date: 04/15/23 Stop Date: 04/20/23 Status: Ordered Multivitamins with Folic Acid 1 mg oral tablet 1 tablet, By Mouth, Daily, # 90 tablet, 0 Refills, Maintenance, 08/02/23 21:04:00 EDT, Tablet, [facility]/pharmacy #[id number], Partial fill upon patient request if the prescription is for a schedule II opioid drug., 1 tablet By Mouth Daily, 165, cm, 08/02/23 19:5... Start Date: 08/02/23 Status: Ordered Valtrex 500 mg oral tablet 500 mg, 1, tablet, By Mouth, Daily, Take with onset of symptoms., # 90 tablet, Refills 4, Tot. Refills 4, Maintenance, 11/05/22 14:53:00 EST, Route to Pharmacy Electronically, [facility]/pharmacy #[id number], Partial fill upon patient request if the prescription i... Start Date: 11/05/22 Status: Ordered Xulane 150 mcg-35 mcg/24 hr transdermal film, extended release 1 film, Topically, Once, Maintenance, # 3 each, 11 Refills, Soft Stop, 01/16/23 8:55:00 EDT, [facility]/pharmacy #[id number], Partial fill upon patient request if the prescription is for a schedule II opioid drug., 1 film Topically Once,Instr:Maintenance, 160, cm,... Start Date: 01/16/23 Status: Ordered Problem List Condition Confirmation Course Effective Dates Status Health St [facility]us Informant COVID-19 1 Confirmed 11/07/22 Active Herpes simplex Confirmed Active 1Problem added by Discern Expert Social History Social History Type Response Smoking Status Never (less than 100 in lifetime) entered on: 08/02/23 Sex Patient Care team information Care Team Related Persons Name: RICARDO MITCHELL Name: DAVID JULIO Address: [address] [place] [address] Name: KRISTIE ALVARADO Address: [address] [place] [address] Name: LARRY ARCE Address: home [address] [place] [address] Name: SERGIO GRIFFIN
--- OUTSIDE RECORDS SUMMARY | 2023-11-14 00:42 | XMS_ITS | Continuity of Care Document ---
Author Name Unknown Organization [facility] Address [address] [place] [address]- Care Team Providers Care Marketing Traffic Coordinator Name Role Phone Christine Wood MD Primary Care Physician Encounter [facility] [place] Date(s): 04/01/22 - 05/01/[address] [address]- Allergies, Adverse Reactions, Alerts Substance Reaction Severity Status shellfish Active Grass Active Latex Active Medications metroNIDAZOLE 500 mg oral tablet 1 tablet = 500 mg, By Mouth, Every 12 hours, # 14 tablet, 0 Refills, Maintenance, 04/02/22 15:44:00EDT, Tablet, [facility]/pharmacy #[id number], Partial fill upon patient request if the prescription is for a schedule II opioid drug., 158, cm, 04/01/22 14:49:00 ED... Start Date: 04/02/22 Stop Date: 04/09/22 Status: Ordered Valtrex 500 mg oral tablet 500 mg, 1, tablet, By Mouth, Daily, Take with onset of symptoms., # 90 tablet, Refills 4, Tot. Refills 4, Maintenance, 11/05/22 14:53:00 EST, Route to Pharmacy Electronically, [facility]/pharmacy #[id number], Partial fill upon patient request if the prescription i... Start Date: 11/05/22 Status: Ordered Valtrex 500 mg oral tablet 500 mg, 1, tablet, By Mouth, Daily, # 90 tablet, Refills 4, Tot. Refills 4, Acute 11/05/22 14:53:00EST, 11/06/21 14:53:00 EST, Route to Pharmacy Electronically, [facility]/pharmacy #[id number], Partial fill uponpatient request if the prescription is for a schedu... Start Date: 11/06/21 Stop Date: 11/05/22 Status: Ordered Xulane 150 mcg-35 mcg/24 hr transdermal film, extended release 1 patch, Topically, Every week, APPLY 1 PATCH EVERY WEEK EACH WEEK X 3 WEEKS, THEN 1 WEEK OFF DIRECTED, # 9 each, 4 Refills, Maintenance, 11/06/21 14:52:00 EST, [facility]/pharmacy #[id number], Partial fill upon patient request if the prescription is for a sche... Start Date: 11/06/21 Status: Ordered Problem List Condition Effective Dates Status Health Status Inform ant Herpes simplex(Confirmed) Active Obese class I(Confirmed) Active Social History Social History Type Response Smoking Status Never smoker entered on: 05/24/15 Sex
--- OUTSIDE RECORDS SUMMARY | 2023-11-14 00:42 | XMS_ITS | Continuity of Care Document ---
Author Name Unknown Organization [facility] Address [address] [place] [address]- Care Team Providers Care Ship Scraper Name Role Phone Christine Wood MD Primary Care Physician Encounter [facility] [place] Date(s): 10/14/20 - 10/14/[address] [address]- Discharge Disposition: A-D/C Home Attending Physician: Roberto Mobley MD Admitting Physician: Roberto Mobley MD Referring Physician: Not on Staff, Referring MD Allergies, Adverse Reactions, Alerts Substance Reaction Severity Status shellfish Active Medications valacyclovir 1 gm oral tablet 1 tablet = 1 Gm, By Mouth, 2 times a day, for 7 days, drink plenty of fluids, # 14 tablet, 0 Refills, Acute 10/21/20 18:02:00 EST, 10/14/20 18:02:00 EST, Tablet, [id number], Partial fill uponpatient request if the prescription is for a schedu... Start Date: 10/14/20 Stop Date: 10/21/20 Status: Ordered Xulane 150 mcg-35 mcg/24 hr [...] Results Orders for Microbiology Reports Name Date Group A Strep Screen and Culture 0 Microbiology Reports TEST:Group A Strep Screen and Culture STATUS:Unauthenticated BODY SITE: SOURCE:THROAT COLLECTED DATE/TIME:10/14/20 4:50 PM Group A Strep Screen and Culture SPECIMEN DESCRIPTION : THROAT SWAB SPECIAL REQUESTS : NONE DIRECT EXAM : RAPID GROUP A RESULT IS NEGATIVE, REFER TO CULTURE RESULT. REPORT STATUS : PRELIMINARY REPORT Vital Signs Most recent to oldest [Reference Range]: 1 2 Weight 68.9 kg (10/14/20 6:18 PM) 68.9 kg (10/14/20 3:44 PM) Oxygen Saturation [94-100 %] 100 % (10/14/20 6:18 PM) 100 % (10/14/20 3:44 PM) Pulse Rate [55-90 bpm] 88 bpm (10/14/20 6:18 PM) 81 bpm (10/14/20 3:44 PM) Blood Pressure [90-138/55-84 mm Hg] 109/ 69mm Hg (10/14/20 6:18 PM) 108/55mm Hg (10/14/20 3:44 PM) Respiratory Rate [16-30 br/min] 18 br/mi n (10/14/20 6:18 PM) 20 br/min (10/14/20 3:44 PM) Temperature [96.8-100.4 DegF] 97.8 DegF (10/14/20 6:18 PM) 97.5 DegF (10/14/20 3:44 PM) Mode of Delivery (Oxygen) Room air (10/14/20 6:18 PM) Room air (10/14/20 3:44 PM) Blood pressure sites Arm, right (10/14/20 6:18 PM) Arm, left (10/14/20 3:44 PM) Temperature Route Oral (10/14/20 6:18 PM) Temporal (10/14/20 3:44 PM) Dry Weight 68.9 kg (10/14/20 6:18 PM) 68.9 kg (10/14/20 3:44 PM) Weight Obtained Via Standing scale (10/14/20 3:44 PM) Dry Weight Obtained Via Pediatric scale (10/14/20 3:44 PM) Social History Social History Type Response Smoking Status Never smoker entered on: 05/24/15 Sex
--- OUTSIDE RECORDS SUMMARY | 2023-11-14 00:42 | XMS_ITS | Continuity of Care Document ---
Author Name Unknown Organization [facility] Address [address] [place] [address]- Care Team Providers Care Fermenter Helper Name Role Phone Not on Staff, PCP Primary Care Physician Unavail able Encounter [facility] Date(s): 04/21/23 - 05/21/[address] [address]- Allergies, Adverse Reactions, Alerts Substance Reaction Severity [...] Refills, Soft Stop, 04/15/23 13:46:00 EDT, Gel, [facility]/pharmacy #[id number], Partial fill upon patient [...] 11/05/22 14:53:00 EST, Route to Pharmacy Electronically, [facility]/pharmacy #[id number], Partial fill upon patient request if the prescription i... Start Date: 1/4/23 Status: Ordered Xulane 150 mcg-35 mcg/24 hr transdermal film, extended release 1 film, Topically, Once, Maintenance, # 3 each, 11 Refills, Soft Stop, 01/16/23 8:55:00 EDT, [facility]/pharmacy #[id number], Partial fill upon patient request if the [...] Personnel Name: Not on Staff, PCP Position: [facility] Physician (General Medicine) Member Role: PCP Care Team Related Persons Name: RICARDO MITCHELL Name: DAVID JULIO Address: home [address] [place] [address] Name: KRISTIE ALVARADO Address: home [address] [place] [address] Name: LARRY ARCE Address: home [address] [place] [address] Name: SERGIO GRIFFIN
--- OUTSIDE RECORDS SUMMARY | 2023-11-14 00:42 | XMS_ITS | Continuity of Care Document ---
Author Name Unknown Organization [facility] ter Address [address] [place] [address]- Care Team Providers Care Edger Machine Operator Name Role Phone Sickle Christine MULTANI Primary Care Physician [place] [facility] [place] Date(s): 06/03/21 - 06/03/[address] [address]- Discharge Disposition: A-D/C Walkout Attending Physician: Not on Staff, Attending MD Admitting Physician: Not on Staff, Admitting MD Referring Physician: Not on Staff, Referring [...] Refills, Maintenance, 10/11/20 16:20:00 EST, Tablet, [id number], Partial fill upon patient request if the prescription is for a schedule II opioid drug., 158, cm, 10/11/20 13:41:00 EST, H... Start Date: 10/11/20 Status: Ordered Vital Signs Most recent to oldest [Reference Range]: 1 2 Oxygen Saturation [94-100 %] 98 % (06/03/21 6:24 PM) 100 % (06/03/21 6:05 PM) Pulse Rate [55-90 bpm] 68 bpm (06/03/21 6:24 PM) 88 bpm (06/03/21 6:05 PM) Blood Pressure [90-138/55-84 mm Hg] 101/ 47mm Hg (06/03/21 6:24 PM) Respiratory Rate [16-30 br/min] 16 br/mi n (8/2/21 6:24 PM) Temperature [96.8-100.4 DegF] 98.9 DegF (06/03/21 6:24 PM) Mode of Delivery (Oxygen) Room air (06/03/21 6:24 PM) Room air (06/03/21 6:05 PM) Temperature Route Oral (06/03/21 6:24 PM) Social History Social History Type Response Smoking Status Never smoker entered on: 05/24/15 Sex
--- OUTSIDE RECORDS SUMMARY | 2023-11-14 00:42 | XMS_ITS | Continuity of Care Document ---
Author Name Unknown Organization [facility] Address [address] [place] [address]- Care Team Providers Care Cylinder Sander Operator Name Role Phone Christine Wood MD Primary Care Physician [phone] Encounter [facility] Date(s): 09/10/20 - 10/10/[address] [address]- Allergies, Adverse Reactions, Alerts Substance Reaction Severity Status shellfish Active Medications Pyridium 200 mg oral tablet 1 tablet = 200 mg, By Mouth, 3 times a day, # 9 tablet, 0 Refills, Maintenance, 10/16/19 15:37:53 EST, Tablet, [id number], 158, cm, 10/16/19 12:05:27 EST, Height, 71.4, kg, 10/16/19 12:05:27 EST, Dry Weight Start Date: 10/16/19 Stop Date: 10/19/19 Status: Ordered Social History Social History Type Response Smoking Status Never smoker entered on: 05/24/15 Sex
--- OUTSIDE RECORDS SUMMARY | 2023-11-14 00:42 | XMS_ITS | Continuity of Care Document ---
Author Name Unknown Organization [facility] Address [address] [place] [address]- Care Team Providers Care Methods Analyst Data Processing Name Role Phone Christine Wood MD Primary Care Physician [phone] [place] [facility] [place] - 07/20/[address] [address]- Attending Physician: Johnathon Clark Admitting Physician: AdmtrJohnathon Referring Physician: Admtr, ArNena Allergies, Adverse Reactions, Alerts Substance Reaction Severity Status shellfish Active Grass Active Latex Active Medications metroNIDAZOLE 500 mg oral tablet 1 tablet = 500 mg, By Mouth, Every 12 hours, # 14 tablet, 0 Refills, Maintenance, 04/02/22 15:44:00EDT, Tablet, [facility]/pharmacy #[id number], Partial fill upon patient request if the prescription is for a schedule II opioid drug., 158, cm, 04/01/22 14:49:00 ED... Start Date: 04/02/22 Stop Date: 04/09/22 Status: Ordered Valtrex 500 mg oral tablet 500 mg, 1, tablet, By Mouth, Daily, Take with onset of symptoms., # 90 tablet, Refills 4, Tot. Refills 4, Maintenance, 11/05/22 14:53:00 EST, Route to Pharmacy Electronically, [facility]/pharmacy #[id number], Partial fill upon patient request if the prescription i... Start Date: 11/05/22 Status: Ordered Valtrex 500 mg oral tablet 500 mg, 1, tablet, By Mouth, Daily, # 90 tablet, Refills 4, Tot. Refills 4, Acute 11/05/22 14:53:00EST, 11/06/21 14:53:00 EST, Route to Pharmacy Electronically, [facility]/pharmacy #[id number], Partial fill uponpatient request if the prescription is for a schedu... Start Date: 11/06/21 Stop Date: 11/05/22 Status: Ordered Xulane 150 mcg-35 mcg/24 hr transdermal film, extended release 1 patch, Topically, Every week, APPLY 1 PATCH EVERY WEEK EACH WEEK X 3 WEEKS, THEN 1 WEEK OFF DIRECTED, # 9 each, 4 Refills, Maintenance, 11/06/21 14:52:00 EST, [facility]/pharmacy #[id number], Partial fill upon patient request if the prescription is for a sche... Start Date: 11/06/21 Status: Ordered Problem List Condition Effective Dates Status Health Status Inform ant Herpes simplex(Confirmed) Active Social History Social History Type Response Smoking Status Never smoker entered on: 05/24/15 Sex Care Team Personnel Name: Christine Wood MD Address: [address] [place] [address]
--- OUTSIDE RECORDS SUMMARY | 2023-11-14 00:42 | XMS_ITS | Continuity of Care Document ---
Author Name Unknown Organization [facility] Address [address] [place] [address]- Care Team Providers Care Thread Marker Name Role Phone Christine Wood MD Primary Care Physician [place] [facility] [place](s[place] 07/24/21 - 11/27/[address] [address]- Attending Physician: Not on Staff, Attending MD Allergies, Adverse Reactions, Alerts Substance Reaction Severity Status shellfish Active Grass Active Latex Active Medications Valtrex 500 mg oral tablet 500 mg, 1, tablet, By Mouth, Daily, # 90 tablet, Refills 4, Tot. Refills 4, Acute 11/05/22 14:53:00EST, 11/06/21 14:53:00 EST, Route to Pharmacy Electronically, [facility]/pharmacy #[id number], Partial fill uponpatient request if the [...]
--- OUTSIDE RECORDS SUMMARY | 2023-11-14 00:42 | XMS_ITS | Continuity of Care Document ---
Author Name Unknown Organization [facility] Address [address] [place] [address]- Care Team Providers Care Index Clerk Name Role Phone Christine Wood MD Primary Care Physician [phone] [facility] [place] - 07/09/[address] [address]- Allergies, Adverse Reactions, Alerts Substance Reaction Severity [...] Maintenance, 11/06/21 14:52:00 EST, [facility]/pharmacy #[id number], Partial fill upon patient request if the prescription is for a sche... Start Date: 11/06/21 Status: Ordered Problem List Condition Effective Dates Status Health Status Inform ant Herpes simplex(Confirmed) Active Social History Social History Type Response Smoking Status Never smoker entered on: 05/24/15 Sex Care Team Personnel Name: Christine Wood MD Address: [address] [place] [address]
--- OUTSIDE RECORDS SUMMARY | 2023-11-14 00:42 | XMS_ITS | Continuity of Care Document ---
Author Name Unknown Organization [facility] Address [address] [place] [address]- Care Team Providers Care Clinical Abstractor Name Role Phone Not on Staff, PCP Primary Care Physician Unavail able Encounter [facility] Date(s): 08/12/23 - 09/17/[address] [address]- Attending Physician: Not on Staff, Attending MD Referring Physician: Mikala MULTANI, Rebecca Allergies, Adverse Reactions, Alerts Substance Reaction Severity Status shellfish Active Grass Active Latex Active Immunizations Given and Recorded Vaccine Date Status Refusal Reason tetanus/diphtheria/pertussis, acel(Tdap) 07/12/21 Recorded Hepatitis A Pediatric Vaccine 06/20/20 Recorded Hepatitis A Pediatric Vaccine 11/25/19 Recorded meningococcal group B vaccine 02/22/20 Recorded meningococcal group B vaccine 11/25/19 Recorded Meningococcal Conjugate Vaccine 11/25/19 Recorded Human Papillomavirus Vaccine 11/25/19 Recorded Medications ofloxacin 0.3% ophthalmic solution 2 drops, Eyes, Both, 4 times a day, for 5 days, # 10 mL, 0 Refills, Acute 09/18/23 21:32:00 EST, 09/13/23 21:32:00 EST, Solution, [facility]/pharmacy #[id number], Partial fill upon patient request if the prescription is for a schedule II opioid drug., 2 drops Eyes... Start Date: 09/13/23 Stop Date: 09/18/23 Status: Ordered Valtrex 500 mg oral tablet [...] MITCHELL Name: DAVID JULIO Address: [address] [place] [address] Name: KRISTIE ALVARADO Address: [address] [place] [address] Name: LARRY ARCE Address: [address] [place] [address] Name: SERGIO GRIFFIN
--- OUTSIDE RECORDS SUMMARY | 2023-11-14 00:42 | XMS_ITS | Continuity of Care Document ---
Author Name Unknown Organization [facility] Address [address] [place] [address]- Care Team Providers Care Outreach Counselor Name Role Phone Not on Staff, PCP Primary Care Physician Unavail able Encounter [facility] Date(s): 09/13/23 - 09/13/[address] [address]- Discharge Disposition: A-D/C Home Attending Physician: Alpa MULTANI, Juanito Tubbs Admitting Physician: Juanito Yuen MD Referring Physician: Not on Staff, Referring [...] 09/18/23 21:32:00 EST, 09/13/23 21:32:00 EST, Solution, [facility]/pharmacy #[id number], Partial fill upon patient request if the prescription is for a schedule II opioid drug., 2 drops Eyes... Start Date: 09/13/23 Stop Date: 09/18/23 Status: Ordered Valtrex 500 mg oral tablet 500 mg, 1, tablet, By Mouth, Daily, Take with onset of symptoms., # 90 tablet, Refills 4, Tot. Refills 4, Maintenance, 11/05/22 14:53:00 EST, Route to Pharmacy Electronically, [facility]/pharmacy #[id number], Partial fill upon patient request if the prescription i... Start Date: 11/05/22 Status: Ordered Xulane 150 mcg-35 mcg/24 hr transdermal film, extended release 1 film, Topically, Once, Maintenance, # 3 each, 11 Refills, Soft Stop, 01/16/23 8:55:00 EDT, [facility]/pharmacy #[id number], Partial fill upon patient request if the [...] [Reference Range]: 1 2 Height 160 cm (09/13/23 9:02 PM) Weight 70.4 kg (09/13/23 9:02 PM) Oxygen Saturation [94-100 %] 96 % (09/13/23 9:02 PM) Pulse Rate [55-90 bpm] 83 bpm (09/13/23 9:02 PM) Blood Pressure [90-138/55-84 mm Hg] 100/ 61mm Hg (09/13/23 9:02 PM) Respiratory Rate [16-30 br/min] 18 br/mi n (09/13/23 9:02 PM) 16 br/min (09/13/23 9:01 PM) Temperature [96.8-100.4 DegF] 97.4 DegF (09/13/23 9:02 PM) Mode of Delivery (Oxygen) Room air (09/13/23 9:02 PM) Room air (09/13/23 9:01 PM) Blood pressure sites Arm, left (09/13/23 9:02 PM) Temperature Route Temporal (09/13/23 9:02 PM) Dry Weight 70.4 kg (09/13/23 9:02 PM) Weight Obtained Via Standing scale (09/13/23 9:02 PM) Dry Weight Obtained Via Standing scale (09/13/23 9:02 PM) Social History Social History Type Response Smoking Status Never (less than 100 in lifetime) entered on: 08/02/23 Sex Note * Lynne Sheets: PERFORM, SIGN, VERIFY Event Display: Patient Education Handout Authored Date: [id number] * Lynne Sheets: PERFORM Event Display: Patient Education Leaflets Authored Date: Bacterial Conjunctivitis ?? [id number] Bacterial Conjunctivitis You have an infection in the membrane covering the white part of??the eye. This part of the eye is called the conjunctiva. The infection is called conjunctivitis. The most common symptoms of conjunctivitis are a thick, puslike discharge from the eye, swollen eyelids, redness, eyelids sticking together upon awakening, and a gritty or scratchy feeling in the eye. Your infection was caused by bacteria. It may be treated with medicine. With treatment, the infection takes about 7 to 10 days to resolve. Home care ??? Use prescribed antibiotic eye drops or ointment as directed to treat the infection. ??? Apply a warm compress (towel soaked in warm water) to the affected eye 3 to 4 times a day. Do this just before applying medicine to the eye. ??? Use a warm, wet cloth to wipe away crusting of the eyelids in the morning. You can also use an ytjz-dkx-tybmirz eyelid-specific wipe. This crusting is caused by mucus drainage during the night. You may also use saline irrigating solution or artificial tears to rinse away mucus in the eye. Don't put a patch over the eye. ??? Wash your hands before andafter touching the infected eye. This is to prevent spreading the infection to the other eye and to other people. Don't share your towels or washcloths with others. ??? You may use acetaminophen or ibuprofen to control pain, unless another medicine was prescribed. Talk with your healthcare providerbefore using these medicines if you have chronic liver or kidney disease. Also talk with your provider if you have ever had a stomach ulcer or digestive bleeding. ??? Don't wear contact lenses until your eyes have healed and all symptoms are gone. ?? Follow-up care Follow up with your healthcare provider, or as advised. ?? When to seek medical advice Call your healthcare provider right away if any of these occur: ??? Worsening vision ??? Increasingpain in the eye ??? Increasing swelling or redness of the eyelid ??? Redness spreading around the eye ?? Last Reviewed Date: 2022 ?? [id number] [employer]. All rights reserved. This information is not intended as a substitute for professional medical care. Always follow your healthcare professional's instructions. This information has been modified by your health care provider with permission from the publisher. ?? Patient Care team information Care Team Personnel Name: Not on Staff, PCP Position: [facility] Physician (General Medicine) Member Role: PCP Name: Ilir Leung Position: [facility] ED OA Member Role: Patient Care Provider Name: Juanito Yuen MD Position: [facility] ED Medicine MD Member Role: Admitting Physician Address: Address: [address] [place] [address]- Name: Lynne Sheets Position: [facility] Associate Professional Member Role: Physician Rubber Belt Splicer Address: Address: [address] [place] [id number] Name: Aurelio Hummel RN Position: [facility] ED RN W/OE and Tasks Member Role: Patient Care Provider Care Team Related Persons Name: RICARDO MITCHELL Name: DAVID JULIO Address: home [address] [place] [address] Name: KRISTIE ALVARADO Address: home [address] [place] [address] Name: LARRY ARCE Address: home [address] [place] [address] Name: SERGIO GRIFFIN
--- OUTSIDE RECORDS SUMMARY | 2023-11-14 00:42 | XMS_ITS | Continuity of Care Document ---
Author Name Unknown Organization [facility] Address [address] [place] [address]- Care Team Providers Care Sheetrock Applicator Name Role Phone Christine Wood MD Primary Care Physician Encounter [facility] Date(s): 06/04/21 - 07/04/[address] [address]- Allergies, Adverse Reactions, Alerts Substance Reaction Severity [...] Refills, Maintenance, 10/11/20 16:20:00 EST, Tablet, [id number], Partial fill upon patient request if the prescription is for a schedule II opioid drug., 158, cm, 10/11/20 13:41:00 EST, H... Start Date: 10/11/20 Status: Ordered Social History Social History Type Response Smoking Status Never smoker entered on: 05/24/15 Sex
--- OUTSIDE RECORDS SUMMARY | 2023-11-14 00:42 | XMS_ITS | Continuity of Care Document ---
Author Name Unknown Organization [facility] Address [address] [place] [address]- Care Team Providers Care Wet Milling Wheel Operator Name Role Phone Sickle Christine MULTANI Primary Care Physician Encounter [facility] Date(s): 04/03/22 - 05/11/[address] [address]- Attending Physician: Not on Staff, Attending MD Allergies, Adverse Reactions, Alerts Substance Reaction Severity Status shellfish Active Grass Active Latex Active Medications metroNIDAZOLE 500 mg oral tablet 1 tablet = 500 mg, By Mouth, Every 12 hours, # 14 tablet, 0 Refills, Maintenance, 04/02/22 15:44:00EDT, Tablet, [facility]/pharmacy #[id number], Partial fill upon patient request if the prescription is for a schedule II opioid drug., 158, cm, 04/01/22 14:49:00 ED... Start Date: 04/02/22 Stop Date: 04/09/22 Status: Ordered Valtrex 500 mg oral tablet 500 mg, 1, tablet, By Mouth, Daily, Take with onset of symptoms., # 90 tablet, Refills 4, Tot. Refills 4, Maintenance, 11/05/22 14:53:00 EST, Route to Pharmacy Electronically, [facility]/pharmacy #[id number], Partial fill upon patient request if the prescription i... Start Date: 11/05/22 Status: Ordered Valtrex 500 mg oral tablet 500 mg, 1, tablet, By Mouth, Daily, # 90 tablet, Refills 4, Tot. Refills 4, Acute 11/05/22 14:53:00EST, 11/06/21 14:53:00 EST, Route to Pharmacy Electronically, [facility]/pharmacy #[id number], Partial fill uponpatient request if the prescription is for a schedu... Start Date: 11/06/21 Stop Date: 11/05/22 Status: Ordered Xulane 150 mcg-35 mcg/24 hr transdermal film, extended release 1 patch, Topically, Every week, APPLY 1 PATCH EVERY WEEK EACH WEEK X 3 WEEKS, THEN 1 WEEK OFF DIRECTED, # 9 each, 4 Refills, Maintenance, 11/06/21 14:52:00 EST, [facility]/pharmacy #[id number], Partial fill upon patient request if the prescription is for a sche... Start Date: 11/06/21 Status: Ordered Problem List Condition Effective Dates Status Health Status Inform ant Herpes simplex(Confirmed) Active Obese class I(Confirmed) Active Social History Social History Type Response Smoking Status Never smoker entered on: 05/24/15 Sex
--- OUTSIDE RECORDS SUMMARY | 2023-11-14 00:42 | XMS_ITS | Continuity of Care Document ---
Author Name Unknown Organization [facility] Address [address] [place] [address]- Care Team Providers Care Field Captain Name Role Phone Not on Staff, PCP Primary Care Physician Unavail able Encounter [facility] Date(s): 04/13/23 - 05/13/[address] [address]- Allergies, Adverse Reactions, Alerts Substance Reaction Severity [...] Refills, Soft Stop, 04/15/23 13:46:00 EDT, Gel, [facility]/pharmacy #[id number], Partial fill upon patient request [...] 14:53:00 EST, Route to Pharmacy Electronically, [facility]/pharmacy #[id number], Partial fill upon patient request if the prescription i... Start Date: 1/4/23 Status: Ordered Xulane 150 mcg-35 mcg/24 hr transdermal film, extended release 1 film, Topically, Once, Maintenance, # 3 each, 11 Refills, Soft Stop, 01/16/23 8:55:00 EDT, [facility]/pharmacy #[id number], Partial fill upon patient request if the [...] Personnel Name: Not on Staff, PCP Position: [facility] Physician (General Medicine) Member Role: PCP Care Team Related Persons Name: RICARDO MITCHELL Name: DAVID JULIO Address: home [address] [place] [address] Name: KRISTIE ALVARADO Address: [address] [place] [address] Name: LARRY ARCE Address: home [address] [place] [address] Name: SERGIO GRIFFIN
--- OUTSIDE RECORDS SUMMARY | 2023-11-14 00:42 | XMS_ITS | Continuity of Care Document ---
Author Name Unknown Organization [facility] Address [address] [place] [address]- Care Team Providers Care Dairy Department Manager Name Role Phone Not on Staff, PCP Primary Care Physician Unavail able Encounter [facility] Date(s): 04/21/23 - 04/21/[address] [address]- Discharge Disposition: A-D/C Home Attending Physician: Jacob Engle MD Admitting Physician: Jacob Engle MD Referring Physician: Not on Staff, Referring [...] Recorded Human Papillomavirus Vaccine 11/25/19 Recorded Medications cefpodoxime 100 mg oral tablet 1 tablet = 100 mg, By Mouth, Every 12 hours, for 7 days, # 14 tablet, 0 Refills, Acute 04/28/23 17:30:00 EDT, 04/21/23 17:30:00 EDT, Tablet, [id number], Partial fill upon patient request if the prescription is for a schedule II opioid drug., 1... Start Date: 04/21/23 Stop Date: 04/28/23 Status: Ordered metroNIDAZOLE 500 mg oral tablet 1 tablet = 500 mg, By Mouth, Every 12 hours, for 7 days, # 14 tablet, 0 Refills, Acute 04/28/23 17:31:00 EDT, 04/21/23 17:31:00 EDT, Tablet, [id number], Partial fill upon patient request if the prescription is for a schedule II opioid drug., 1... Start Date: 04/21/23 Stop Date: 04/28/23 Status: Ordered metronidazole topical 0.75% gel with applicator 1 application, Vaginally, Daily at bedtime, # 70 Gm, 0 Refills, Soft Stop, 04/15/23 13:46:00 EDT, Gel, [facility]/pharmacy #[id number], Partial fill upon patient request if the prescription is for a schedule II opioid drug., 1 application Vaginally Daily at bedtim... Start Date: 04/15/23 Stop Date: 04/20/23 Status: Ordered Valtrex 500 mg oral tablet 500 mg, 1, tablet, By Mouth, Daily, Take with onset of symptoms., # 90 tablet, Refills 4, Tot. Refills 4, Maintenance, 11/05/22 14:53:00 EST, Route to Pharmacy Electronically, [facility]/pharmacy #[id number], Partial fill upon patient request if [...] Confirmed Active 1Problem added by Discern Expert Results Orders for Microbiology Reports Name Date Wet Prep 04/21/23 Microbiology Reports TEST:Wet Prep STATUS:Auth (Verified) BODY SITE: SOURCE:VAGINA COLLECTED DATE/TIME:04/21/23 4:01 PM Wet Prep SPECIMEN DESCRIPTION : VAGINAL SPECIMEN SPECIAL REQUESTS : NONE DIRECT EXAM : 2+ CLUE CELLS 2+ WHITE BLOOD CELLS NO TRICHOMONAS OBSERVED NO YEAST OBSERVED REPORT STATUS : FINAL 04/21/2023 Vital Signs Most recent to oldest [Reference Range]: 1 2 Height 160 cm (04/21/23 4:39 PM) 160 cm (04/21/23 3:11 PM) Weight 70.4 kg (04/21/23 3:11 PM) Oxygen Saturation [94-100 %] 99 % (04/21/23 4:39 PM) 95 % (04/21/23 3:00 PM) Pulse Rate [55-90 bpm] 51 bpm *L* (04/21/23 4:39 PM) 78 bpm (04/21/23 3:00 PM) Blood Pressure [90-138/55-84 mm Hg] 100/ 62mm Hg (04/21/23 4:39 PM) 138/83mm Hg (04/21/23 3:00 PM) Respiratory Rate [16-30 br/min] 18 br/mi n (04/21/23 4:39 PM) 18 br/min (04/21/23 3:00 PM) Temperature [96.8-100.4 DegF] 98.2 DegF (04/21/23 4:39 PM) 98.8 DegF (04/21/23 3:00 PM) Mode of Delivery (Oxygen) Room air (04/21/23 4:39 PM) Room air (04/21/23 3:00 PM) Blood pressure sites Arm, left (04/21/23 4:39 PM) Temperature Route Oral (04/21/23 4:39 PM) Oral (04/21/23 3:00 PM) Dry Weight 70.4 kg (04/21/23 3:11 PM) Weight Obtained Via Standing scale (04/21/23 3:11 PM) Social History Social History Type Response Smoking Status Never smoker entered on: 05/24/15 Sex Note * Lynne Sheets: PERFORM, SIGN, VERIFY Event Display: Patient Education Handout Authored Date: [id number] * Lynne Sheets: PERFORM Event Display: Patient Education Leaflets Authored Date: [id number] Bacterial Vaginosis ?? [id number] Bacterial Vaginosis You have a vaginal infection called bacterial vaginosis (BV). Both good and bad bacteria are present in a healthy vagina. BV occurs when these bacteria get out of balance. The number of bad bacteria increase. And the number of good bacteria decrease. BV is linked with sexual activity, but it's not a sexually transmitted infection (STI). BV may or may not cause symptoms. If symptoms do occur, they can include: ??? Thin, burton, milky-white, or sometimes green discharge ??? Unpleasant odor or ???fishy?? smell ??? Itching, burning, or pain in or around the vagina It's not known what causes BV, but certain factors can make the problem more likely. These can include: ??? Douching ??? Spermicides ??? Use of antibiotics ??? Change in hormone levels with , , or menopause ??? Having sex with a new partner ??? Having sex with more than one partner BV will sometimes go away on its own. But treatment is often advised. This is because untreated BV can raise the risk of more serious health problems, such as: ??? Pelvic inflammatory disease (PID) ??? delivery (giving to a baby early if you???re ) ??? HIV and some other sexually transmitted infections (STIs) ??? Infection after surgery on the reproductive organs Home care General care ??? BV is most often treated with medicines called antibiotics. These may be given as pills or as avaginal cream.??If antibiotics are prescribed, be sure to use them exactly as directed. And complete all of the medicine, even if your symptoms go away. ??? Don't douche or have sex during treatment.??? If you have sex with a female partner, ask your healthcare provider if she should also be treated. Prevention ??? Don't douche. ??? Don't have sex. If you do have sex, take steps to lower your risk:o Use condoms when having sex. o Limit the number of sex partners you have. ?? Follow-up care Follow up with your healthcare provider, or as advised. ?? When to get medical advice Call your healthcare provider right away if any of the following occur: ??? You have a fever of??100.4??F (38??C)??or higher, or as directed by your healthcare provider. ??? Your symptoms get worse, or they don???t go away within a few days of starting treatment. ??? You have new pain in the lower belly??or pelvic region. ??? You have side effects that bother you or a reaction to the pills or cream you???re prescribed. ??? You or any of your sex partners have new symptoms, such as a rash, jointpain, or sores. ?? Last Reviewed Date: 2022 ?? [employer]. All rights reserved. This information is not intended as a substitute for professional medical care. Always follow your healthcare professional's instructions. ?? * Lynne Sheets: PERFORM Event Display: Patient Education Leaflets Authored Date: [id number] Bladder Infection,??Female (Adult) ?? [id number] Bladder Infection,??Female (Adult) Urine normally doesn't have any germs (bacteria) in it. But bacteria can get into the urinary tractfrom the skin around the rectum. Or they can travel in the blood from other parts of the body. Oncethey are in your urinary tract, they can cause infection in these areas: ??? The urethra (urethritis) ??? The bladder (cystitis) ??? The kidneys (pyelonephritis) The most common place for an infection is in the bladder. This is called a bladder infection. This is one of the most common infections in women because women have a shorter urethra than men. Bacteria have a shorter distance to travel to reach the bladder.. Women who have gone through menopause also lose the protection from estrogen that lowers the chance of getting a UTI. And some women are at higher risk because of their genes. Most bladder infections are easily treated. They are not serious unless the infection spreads to the kidney. The terms bladder infection, UTI, and cystitis are often used to describe the same thing. But they are not always the same. Cystitis is an inflammation of the bladder. The??most common cause of cystitis is an infection. Symptoms The infection causes inflammation in the urethra and bladder. This causes many of the symptoms. Themost common symptoms of a bladder infection are: ??? Pain or burning when urinating ??? Having to urinate more often than normal ??? Urgent need to urinate ??? Only a small amount of urine comes out ??? Blood in urine ??? Belly (abdominal) discomfort. This is often in the lower belly above the pubic bone. ??? Lower back pain ??? Cloudy urine ??? Strong- or bad-smelling urine ??? Unable to urinate(urinary retention) ??? Unable to hold urine in (urinary incontinence) ??? Fever ??? Loss of appetite ??? Confusion (in older adults) ?? Causes Bladder infections are not contagious. You can't get one from someone else, from a toilet seat, or from sharing a bath. The most common cause of bladder infections is bacteria from the bowels. The bacteria get onto the skin around the opening of the urethra. From there, they can get into the urine. Then they travel upto the bladder, causing inflammation and infection. This often happens because of: ??? Wiping incorrectly after urinating. Always wipe from front to back. ??? Bowel incontinence ??? . Duringpregnancy urinary tract changes raise the risk for infection. ??? Procedures such as having a catheter put in ??? Older age ??? Not emptying your bladder. This can give bacteria a chance to grow in your urine. ??? Fluid loss (dehydration) ??? Constipation ??? Having sex ??? Using a diaphragm for control? Treatment Bladder infections are diagnosed by a urine test and urine culture. They are treated with antibiotics. They often??clear up quickly without problems. Treatment helps prevent a more serious kidney infection. ?? Medicines Medicines can help in the treatment of a bladder infection: ??? Take antibiotics until they are used up, even if you feel better. It's important to finish them to make sure the infection has cleared.??? You can use acetaminophen or ibuprofen for pain, fever, or discomfort, unless another medicine was prescribed. If you have long-term (chronic) liver or kidney disease, talk with your healthcare??provider before using??these medicines. Also talk with your provider if you've ever had a stomach ulcer or GI (gastrointestinal) bleeding, or are taking blood-thinner medicines. ??? If you are given??phenazopydridine to reduce burning with urination, it will make your urine a bright orange color. This can stain clothing. ?? Care and prevention These self-care steps can help prevent future infections: ??? Drink plenty of fluids. This helps toprevent dehydration and flush out your bladder. Do this??unless you must restrict fluids for other health reasons, or your healthcare provider told you not to. ??? Clean yourself correctly after going to the bathroom. Wipe from front to back after using the toilet. This helps prevent the spread of bacteria. ??? Urinate more often. Don't try to hold urine in for a long time. ??? Wear loose-fittingclothes and cotton underwear. Don't wear tight- fitting pants. ??? Improve your diet and prevent constipation. Eat more fresh fruits and vegetables, and??fiber. Eat less junk foods and fatty foods. ??? Don't have sex until your symptoms are gone. ??? Don't have caffeine, alcohol, and spicy foods. These can irritate your bladder. ??? Urinate right after you have sex to flush out your bladder. ??? If you use control pills and have frequent bladder infections, discuss it with your healthcare provider. ?? Follow-up care Call your healthcare provider if all symptoms are not gone after 3 days of treatment. This is especially important if you have repeat infections. If a culture was done, you will be told if your treatment needs to be changed. If directed, you cancall??to find out the results. If X-rays were done, you will be told if the results will affect your??treatment. ?? Call 911 Call 911 if any of the following occur: ??? Trouble breathing ??? Hard to wake up or??confusion ???Fainting (loss of consciousness) ??? Fast heart rate ?? When to get medical advice Call your healthcare provider right away if any of these occur: ??? Fever of 100.4??F (38.0??C) or higher, or as directed by your healthcare provider ??? Symptoms are not better??after 3 days of treatment ??? Symptoms get worse or you have new symptoms ??? Back or belly pain that gets worse ??? Repeated vomiting, or unable to keep medicine down ??? Weakness or dizziness ??? Vaginal discharge ??? Pain, redness, or swelling in the outer vaginal area (labia) ?? Last Reviewed Date: 2021 ?? [id number] [employer]. All rights reserved. This information is not intended as a substitute for professional medical care. Always follow your healthcare professional's instructions. ?? Patient Care team information Care Team Personnel Name: Not on Staff, PCP Position: [facility] Physician (General Medicine) Member Role: PCP Name: Leyla Daley Position: [facility] ED [facility] Member Role: Fire Official Name: Lynne Sheets Position: [facility] Associate Professional Member Role: Physician Director Of Payroll Address: Address: [address] [place] [id number] Name: Jacob Engle MD Position: [facility] ED Medicine MD Member Role: Admitting Physician Address: Address: [address] [place] [id number] Name: Curtis Tyler RN Position: [facility] ED RN W/OE and Tasks Member Role: Patient Care Provider Care Team Related Persons Name: RICARDO MITCHELL Name: DAVID JULIO Address: [address] [place] [address] Name: KRISTIE ALVARADO Address: [address] [place] [address] Name: LARRY ARCE Address: home [address] [place] [address] Name: SERGIO GRIFFIN
--- OUTSIDE RECORDS SUMMARY | 2023-11-14 00:42 | XMS_ITS | Continuity of Care Document ---
Author Name Unknown Organization [facility] Address [address] [place] [address]- Care Team Providers Care Sales Property Manager Name Role Phone Christine Wood MD Primary Care Physician Encounter [facility] Date(s): 10/16/20 - 11/15/[address] [address]- Allergies, Adverse Reactions, Alerts Substance Reaction Severity Status shellfish Active Grass Active Latex Active Medications Valtrex 500 mg oral tablet 500 mg, 1, tablet, By Mouth, Daily, for 30 days, # 90 tablet, Refills 4, Tot. Refills 4, Acute 03/16/21 12:04:00 EDT, 10/17/20 12:04:00 EST, Route to Pharmacy Electronically, [facility]/pharmacy #[id number], Partial fill upon patient request if the [...] 0 Refills, Maintenance, 10/11/20 16:20:00 EST, Tablet, [facility]/pharmacy #[id number], Partial fill upon patient request if the prescription is for a schedule II opioid drug., 158, cm, 10/11/20 13:41:00 EST, H... Start Date: 10/11/20 Status: Ordered Social History Social History Type Response Smoking Status Never smoker entered on: 05/24/15 Sex
--- OUTSIDE RECORDS SUMMARY | 2023-11-14 00:42 | XMS_ITS | Continuity of Care Document ---
Author Name Unknown Organization [facility] Address [address] [place] [address]- Care Team Providers Care Mandarin Tutor Name Role Phone Christine Wood MD Primary Care Physician [phone] Encounter [facility] Date(s): 04/11/22 - 05/11/[address] [address] Attending Physician: Admtr, [id number] Admitting Physician: Admtr, [id number] Referring Physician: Admtr, [id number] Allergies, Adverse Reactions, Alerts Substance Reaction Severity Status shellfish Active Grass Active Latex Active Medications metroNIDAZOLE 500 mg oral tablet 1 tablet = 500 mg, By Mouth, Every 12 hours, # 14 tablet, 0 Refills, Maintenance, 04/02/22 15:44:00EDT, Tablet, [facility]/pharmacy #[id number], Partial fill upon patient request if [...] 11/06/21 14:53:00 EST, Route to Pharmacy Electronically, [facility]/pharmacy #[id number], Partial fill uponpatient request if the prescription is for a schedu... Start Date: 11/06/21 Stop Date: 11/05/22 Status: Ordered Xulane 150 mcg-35 mcg/24 hr transdermal film, extended release 1 patch, Topically, Every week, APPLY 1 PATCH EVERY WEEK EACH WEEK X 3 WEEKS, THEN 1 WEEK OFF DIRECTED, # 9 each, 4 Refills, Maintenance, 11/06/21 14:52:00 EST, [facility]/pharmacy #[id number], Partial fill upon patient request if the prescription is for a sche... Start Date: 11/06/21 Status: Ordered Problem List Condition Effective Dates Status Health Status Inform ant Herpes simplex(Confirmed) Active Obese class I(Confirmed) Active Social History Social History Type Response Smoking Status Never smoker entered on: 05/24/15 Sex
--- OUTSIDE RECORDS SUMMARY | 2023-11-14 00:42 | XMS_ITS | Continuity of Care Document ---
Author Name Unknown Organization [facility] Address [address] [place] [address]- Care Team Providers Care Yard Jockey Name Role Phone Christine Wood MD Primary Care Physician [phone] Encounter [facility] [place] Date(s): 11/21/19 - 11/28/[address] [address]- [facility] Attending Physician: Vinnie MULTANI, Chani Small Allergies, Adverse Reactions, Alerts Substance Reaction Severity Status shellfish Active Medications Pyridium 200 mg oral tablet 1 tablet = 200 mg, By Mouth, 3 times a day, # 9 tablet, 0 Refills, Maintenance, 10/16/19 15:37:53 EST, Tablet, [id number], 158, cm, 10/16/19 12:05:27 EST, Height, 71.4, kg, 10/16/19 12:05:27 EST, Dry Weight Start Date: 10/16/19 Stop Date: 10/19/19 Status: Ordered Results Microbiology Reports TEST:Urine Culture STATUS:Auth (Verified) BODY SITE: SOURCE:URINE COLLECTED DATE/TIME:11/21/19 8:43 AM Urine Culture SPECIMEN DESCRIPTION : URINE SPECIAL REQUESTS : NONE CULTURE : Mixed bacterial heavenly, indicative of urogenital contamination. REPORT STATUS : FINAL 11/22/2019 Social History Social History Type Response Smoking Status Never smoker entered on: 05/24/15 Sex
--- OUTSIDE RECORDS SUMMARY | 2023-11-14 00:42 | XMS_ITS | Continuity of Care Document ---
Author Name Unknown Organization [facility] Address [address] [place] [address]- Care Team Providers Care Boilers And Pressure Vessels Inspector Name Role Phone Not on Staff, PCP Primary Care Physician Unavail able Encounter [facility] Date(s): 11/07/22 - 11/07/[address] [address]- Encounter Diagnosis COVID-19(Final) - 11/07/22 Vomiting(Final) - 11/07/22 Discharge Disposition: A-D/C Home Attending Physician: Tre Winston DO Admitting Physician: Tre Winston DO Referring Physician: Not on Staff, Referring MD Allergies, Adverse Reactions, Alerts Substance Reaction Severity Status shellfish Active Grass Active Latex Active Medications metroNIDAZOLE 500 mg oral tablet 1 tablet = 500 mg, By Mouth, Every 12 hours, # 14 tablet, 0 Refills, Maintenance, 04/02/22 15:44:00EDT, Tablet, [facility]/pharmacy #[id number], Partial fill upon patient request if the prescription is for a schedule II opioid drug., 158, cm, 04/01/22 14:49:00 ED... Start Date: 04/02/22 Stop Date: 04/09/22 Status: Ordered Valtrex 500 mg oral tablet 500 mg, 1, tablet, By Mouth, Daily, Take with onset of symptoms., # 90 tablet, Refills 4, Tot. Refills 4, Maintenance, 11/05/22 14:53:00 EST, Route to Pharmacy Electronically, [facility]/pharmacy #[id number], Partial fill upon patient request if the prescription i... Start Date: 11/05/22 Status: Ordered Xulane 150 mcg-35 mcg/24 hr transdermal film, extended release 1 patch, Topically, Every week, APPLY 1 PATCH EVERY WEEK EACH WEEK X 3 WEEKS, THEN 1 WEEK OFF DIRECTED, # 9 each, 4 Refills, Maintenance, 11/06/21 14:52:00 EST, [facility]/pharmacy #[id number], Partial fill upon patient request if the prescription is for a sche... Start Date: 11/06/21 Status: Ordered Problem List Condition Confirmation Course Effective Dates Status Health [facility] Informant COVID-19 1 Confirmed 11/07/22 Active Herpes simplex Confirmed Active 1Problem added by Discern Expert Vital Signs Most recent to oldest [Reference Range]: 1 2 3 Height 160 cm (11/07/22 2:36 AM) 160 cm (11/07/22 12:14 AM) 160 cm (11/07/22 12:09 AM) Weight 73 kg (11/07/22 2:36 AM) 73 kg (11/07/22 12:14 AM) 73 kg (11/07/22 12:09 AM) Oxygen Saturation [94-100 %] 99 % (11/07/22 2:36 AM) 100 % (11/07/22 12:09 AM) Pulse Rate [55-90 bpm] 89 bpm (11/07/22 2:36 AM) 93 bpm *H* (11/07/22 12:09 AM) Body Mass Index [18.5-24.99 kg/m2] 28.52 kg/m2 *H* (11/07/22 2:36 AM) 28.52 kg/m2 *H* (11/07/22 12:09 AM) Blood Pressure [90-138/55-84 mm Hg] 105/82mm Hg (11/07/22 2:36 AM) 102/85mm Hg (11/07/22 12:09 AM) Respiratory Rate [16-30 br/min] 18 br/min (11/07/22 2:36 AM) 20 br/min (11/07/22 12:09 AM) Temperature [96.8-100.4 DegF] 97.2 DegF (11/07/22 12:09 AM) Mode of Delivery (Oxygen) Room air (11/07/22 2:36 AM) Room air (11/07/22 12:09 AM) Blood pressure sites Arm, left (11/07/22 2:36 AM) Arm, left (11/07/22 12:09 AM) Temperature Route Temporal (11/07/22 12:09 AM) Dry Weight 73 kg (11/07/22 2:36 AM) 73 kg (11/07/22 12:14 AM) 73 kg (11/07/22 12:09 AM) Social History Social History Type Response Smoking Status Never smoker entered on: 05/24/15 Sex Patient Care team information Care Team Personnel Name: Not on Staff, PCP Position: [facility] Physician (General Medicine) Member Role: PCP Name: Tre Winston DO Position: [facility] ED Medicine MD Member Role: ED Attending Physician Address: Address: [address] [place] [address] [place] [address] Name: Zay Sheppard RN Position: [facility] ED RN W/OE and Tasks Member Role: Patient Care Provider Care Team Related Persons Name: DAVID JULIO Address: home [address] [place] [address] Name: KRISTIE ALVARADO Address: home [address] [place] [address] Name: LARRY ARCE Address: home [address] [place] [address] Name: SERGIO GRIFFIN
--- OUTSIDE RECORDS SUMMARY | 2023-11-14 00:42 | XMS_ITS | Continuity of Care Document ---
Author Name Unknown Organization [facility] Address [address] [place] [address]- Care Team Providers Care Rfp Writer Name Role Phone Christine Wood MD Primary Care Physician [phone] Encounter [facility] [place] Date(s): 01/15/23 - 02/14/[address] [address]- Attending Physician: Johnathon Clark Admitting Physician: AdmJohnathon tellez Referring Physician: AdmtrJohnathon Allergies, Adverse Reactions, Alerts Substance Reaction Severity Status shellfish Active Grass Active Latex Active Immunizations Given and Recorded Vaccine Date Status Refusal Reason tetanus/diphtheria/pertussis, acel(Tdap) 07/12/21 Recorded Hepatitis A Pediatric Vaccine 06/20/20 Recorded Hepatitis A Pediatric Vaccine 11/25/19 Recorded meningococcal group B vaccine 02/22/20 Recorded meningococcal group B vaccine 11/25/19 Recorded Meningococcal Conjugate Vaccine 11/25/19 Recorded Human Papillomavirus Vaccine 11/25/19 Recorded Medications Valtrex 500 mg oral tablet 500 mg, 1, tablet, By Mouth, Daily, Take with onset of symptoms., # 90 tablet, Refills 4, Tot. Refills 4, Maintenance, 11/05/22 14:53:00 EST, Route to Pharmacy Electronically, [facility]/pharmacy #[id number], Partial fill upon patient request if the prescription i... Start Date: 11/05/22 Status: Ordered Xulane 150 mcg-35 mcg/24 hr transdermal film, extended release 1 film, Topically, Once, Maintenance, # 3 each, 11 Refills, Soft Stop, 01/16/23 8:55:00 EDT, [facility]/pharmacy #[id number], Partial fill upon patient request if [...] team information Care Team Related Persons Name: DAVID JULIO Address: [address] [place] [address] Name: KRISTIE ALVARADO Address: home [address] [place] [address] Name: LARRY ARCE Address: [place] [address] Name: SERGIO GRIFFIN
--- OUTSIDE RECORDS SUMMARY | 2023-11-14 00:43 | XMS_ITS | Continuity of Care Document ---
Author Name Unknown Organization [facility] Address [address] [place] [address]- Care Team Providers Care Verify Rep Name Role Phone Not on Staff, PCP Primary Care Physician Unavail able Encounter [facility] Date(s): 08/02/23 - 08/02/[address] [address]- Discharge Disposition: A-D/C Home Attending Physician: Jacob [...] Soft Stop, 04/15/23 13:46:00 EDT, Gel, [id number], Partial fill upon patient request if the prescription is for a schedule II opioid drug., 1 application Vaginally Daily at bedtim... Start Date: 04/15/23 Stop Date: 04/20/23 Status: Ordered ondansetron 4 mg oral tablet, disintegrating 1 tablet = 4 mg, By Mouth, Every 8 hours, PRN as needed for nausea/vomiting, for 3 days, # 8 tablet, 0 Refills, Acute 08/05/23 21:02:00 EDT, 08/02/23 21:02:00 EDT, DIS Tablet, [facility]/pharmacy #[id number], Partial fill upon patient request if the prescription i... Start Date: 08/02/23 Stop Date: 08/05/23 Status: Ordered Multivitamins with Folic Acid 1 mg oral tablet 1 tablet, By Mouth, Daily, # 90 tablet, 0 Refills, Maintenance, 08/02/23 21:04:00 EDT, Tablet, [facility]/pharmacy #[id number], Partial fill upon patient request [...] 11/05/22 14:53:00 EST, Route to Pharmacy Electronically, [facility]/pharmacy #[id number], Partial fill upon patient request if the prescription i... Start Date: 11/05/22 Status: Ordered Xulane 150 mcg-35 mcg/24 hr transdermal film, extended release 1 film, Topically, Once, Maintenance, # 3 each, 11 Refills, Soft Stop, 01/16/23 8:55:00 EDT, [facility]/pharmacy #[id number], Partial fill upon patient request [...] oldest [Reference Range]: 1 2 3 Height 165 cm (08/02/23 7:59 PM) 165 cm (08/02/23 4:15 PM) 165 cm (08/02/23 1:44 PM) Weight 70 kg (08/02/23 7:59 PM) 70 kg (08/02/23 4:15 PM) 70 kg (08/02/23 1:44 PM) Oxygen Saturation [94-100 %] 100 % (08/02/23 7:59 PM) 100 % (08/02/23 4:15 PM) 100 % (08/02/23 3:45 PM) Pulse Rate [55-90 bpm] 65 bpm (08/02/23 7:59 PM) 71 bpm (08/02/23 4:15 PM) 73 bpm (08/02/23 3:45 PM) Body Mass Index [18.5-24.99 kg/m2] 25.71 kg/m2 *H* (08/02/23 7:59 PM) 25.71 kg/m2 *H* (08/02/23 4:15 PM) Blood Pressure [90-138/55-84 mm Hg] 114/71mm Hg (08/02/23 7:59 PM) 138/85mm Hg (08/02/23 4:15 PM) 100/88mm Hg (08/02/23 3:45 PM) Respiratory Rate [16-30 br/min] 19 br/min (08/02/23 7:59 PM) 20 br/min (08/02/23 4:15 PM) 22 br/min (08/02/23 3:45 PM) Temperature [96.8-100.4 DegF] 97.3 DegF (08/02/23 1:44 PM) Liters per Minute 2 L/min (08/02/23 4:15 PM) 10 L/min (08/02/23 3:45 PM) Mode of Delivery (Oxygen) Room air (08/02/23 7:59 PM) Room air (08/02/23 4:15 PM) Nonrebreather mask (08/02/23 3:45 PM) Blood pressure sites Arm, right (08/02/23 7:59 PM) Arm, right (08/02/23 4:15 PM) Arm, right (08/02/23 3:45 PM) Dry Weight 70 kg (08/02/23 7:59 PM) 70 kg (08/02/23 4:15 PM) 70 kg (08/02/23 1:44 PM) Dry Weight Obtained Via Standing scale (08/02/23 1:44 PM) Social History Social History Type Response Smoking Status Never (less than 100 in lifetime) entered on: 08/02/23 Sex Note * Lynne Sheets: PERFORM, SIGN, VERIFY Event Display: Patient Education Handout Authored Date: * Lynne Sheets: PERFORM Event Display: Patient Education Leaflets Authored Date: [id number] Vomiting (Adult) ?? [id number] Vomiting (Adult) Vomiting is a common symptom that may be due to different causes. These include gastroenteritis (stomach flu), food poisoning, and gastritis. Other more serious causes of vomiting may be hard to diagnose early in the illness. That's why it's important to watch for the warning signs listed below. The main danger from repeated vomiting is dehydration. This is because of the loss of water and minerals from the body. When this occurs, your body fluids must be replaced. Home care ??? If symptoms are severe, rest at home for the next 24 hours. ??? Because your symptoms may be from an infection, wash your hands often and well. Use soap and clean, running water or alcohol-based manager fitness to keep from spreading the infection to others. ??? Wash your hands for at least 20 seconds. Scrub all surfaces of your hands, including between your fingers and under your fingernails each time you wash. Humming the Happy Birthday song twice while you wash is an easy way to make sure you've washed for 20 seconds. ??? Wash your hands after using the toilet, before and after preparing food, before eating food, after changing a diaper, cleaning a wound, caring for a sick person, and blowing your nose, coughing, or sneezing. You should also wash your hands after caring for someone who is sick, touching pet food, or treats, and touching an animal, or animal waste. ??? You may use acetaminophen??or NSAID medicines such as ibuprofen or naproxen to control fever, unless another medicinewas prescribed. Talk with your provider before using these medicines if you have chronic liver or kidney disease or ever had a stomach ulcer or digestive bleeding. Never give aspirin to anyone younger than 18 who is ill with a fever. It may cause severe liver damage. Don't use NSAID medicines if you are already taking one for another condition such as arthritis or take aspirin for heart disease or after a stroke. ??? Don't use tobacco or drink alcohol. These may make your symptoms worse. If youhave trouble stopping either substance, ask your provider for treatment resources. ??? If medicinesfor vomiting were prescribed, take as directed. Tell your provider if they don't work within the expected time period. ??? Once vomiting stops, then follow these guidelines: During the first 12 to 24 hours, follow the diet below: ??? Fruit juices. Apple, grape juice, clear fruit drinks, and electrolyte replacement drinks. ??? Beverages. Water, soft drinks without caffeine; mineral water (plain or flavored), and decaffeinated tea and coffee. ??? Soups. Clear broth and bouillon. ??? Desserts. Plain gelatin, ice pops, and fruit juice bars. As you feel better, you may add 6 to 8 ounces of yogurt per day. During the next 24 hours you may add the following to the above: ??? Hot cereal, plain toast, bread, rolls, and crackers ??? Plain noodles, rice, mashed potatoes, and chicken noodle or rice soup ??? Unsweetened canned fruit such as applesauce, bananas. Don't have pineapple or citrus. ??? Limit caffeine and chocolate. No spices or seasonings except salt. During the next 24 hours: Gradually go back to your normal diet, as you feel better and your symptoms lessen. ?? Follow-up care Follow up with your healthcare provider as advised. ?? When to seek medical advice Call your healthcare provider right away if any of these occur: ??? Constant right-sided lower belly pain or increasing general belly pain ??? Continued vomiting (unable to keep liquids down) for 24 hours ??? Vomiting blood or what looks like coffee grounds ??? Swollen belly ??? Frequent diarrhea (more than 5 times a day), or blood (red or black color) or mucus in diarrhea ??? Peeing less than usual or extreme thirst ??? Weakness, dizziness, or fainting ??? Unusually drowsy or confused ??? Fever of 100.4??F (38??C) oral or higher, or as directed by your provider ??? Yellow color of the eyes or skin ??? Other symptoms get worse or you have new symptoms ?? Last Reviewed Date: 2021 ?? [id number] [employer]. All rights reserved. This information is not intended as a substitute for professional medical care. Always follow your healthcare professional's instructions. ?? * Lynne Sheets: PERFORM Event Display: Patient Education Leaflets Authored Date: ?? [id number] Your exam today shows that you are . symptoms During your body???s hormones change. This causes physical and emotional changes. This isnormal. Knowing what to expect is important for your peace of mind and so you know when to get helpfor a problem. Here are some of the most common symptoms: ??? Morning sickness or nausea. This can happen any time of the day or night. ??? Tender, swollen breasts ??? Need to pee often ??? Tirednessor fatigue ??? Dizziness ??? Indigestion or heartburn ??? Food cravings or turn-offs ??? Constipation ??? Emotional changes. This can range from anxiety to excitement to depression. ?? General care for a healthy Here are things you can do to help make sure your baby is born healthy: ??? Rest when you feel tired. This is especially true in the later months of . ??? Drink more fluids. Your body needs more fluids than you may be used to. Drink 8 to10 glasses of juice, milk, or water every day. ??? Eat well-balanced meals. Eat at regular times to give your body enough protein. You can expect to gainabout 30 pounds during the . Don???t try to diet or lose weight while you are . ??? Take a vitamin every day. This helps you meet the extra nutritional needs of . ??? Don???t take any other medicine during your unless your healthcare provider tells you to. This includes prescription medicines and those you buy over the counter. Many medicines can harm the growing baby. ??? If you have nausea or vomiting, don???t eat greasy or fried foods. Eat severalsmaller meals throughout the day rather than 3 large meals. ??? If you smoke, you must stop. The nicotine you breathe in goes right to the baby. ??? Stay away from alcohol, even in moderate amounts. D aily drinking will harm your baby and can cause permanent brain damage. There is no safe amount of alcohol during . ??? Don???t use recreational drugs, especially cocaine, crack, and heroin.These will harm your baby. Also don't use marijuana. ??? If you were using recreational drugs or prescribed medicine when you found out that you were , talk with your healthcare provider about possible effects on your growing baby. ??? If you have medical problems that you need to take medicine for, talk with your healthcare provider. ?? Follow-up care Call your healthcare provider to arrange for care.?? care is important. You can see your family provider, a specialist (risk investigator), a polymer scientist, or a primary care clinic. ?? When to get medical advice Call your healthcare provider right away??if any of the following occur: ??? Vaginal bleeding ??? Pain in your belly (abdomen) or back that is moderate or severe ??? Lots of vomiting, or you can???t keep any fluids down for 6 hours ??? Burning feeling when you urinate ??? Headache, dizziness, or rapid weight gain ??? Fever ??? Vision changes or blurred vision ?? Last Reviewed Date: 2022 ?? [id number] [employer]. All rights reserved. This information is not intended as a substitute for professional medical care. Always follow your healthcare professional's instructions. ?? Patient Care team information Care Team Personnel Name: Not on Staff, PCP Position: [facility] Physician (General Medicine) Member Role: PCP Name: Sisi Perez RN Position: [facility] ED RN W/OE and Tasks Member Role: Patient Care Provider Name: Lynne Sheets Position: [facility] Associate Professional Member Role: Physician Shaping Machine Tender Address: Address: [address] [place] [address]- [place] Name: Mary Kay Oneil Position: [facility] ED [facility] Member Role: Patient Care Provider Name: Jacob Engle MD Position: [facility] ED Medicine MD Member Role: Admitting Physician Address: Address: [address] [place] [address]- Care Team Related Persons Name: PAULA RICARDO Name: DAVID JULIO Address: home [address] [place] [address] Name: KRISTIE ALVARADO Address: home [address] [place] [address] Name: LARRY ARCE Address: home [address] [place] [address] Name: SERGIO GRIFFIN
[2023-11-14 02:07] VITALS: BP 122/65; PULSE 60; RESP 16; O2SAT 98
[2023-11-14 02:31] LABS: Appearance Urine Clear; Color Urine Dark Yellow; Glucose Urine UA Negative (Negative); Leukocyte Esterase Urine Negative (Negative); Nitrite Urine Negative (Negative); PH 6.5 (5.0-9.0); Specific Gravity - Urine >= 1.030 (1.005-1.025); UMIC TRIGGER UACC YES; Urine Blood Negative (Negative); Urine Ketones 80 mg/dL (Negative); Urine Protein 30 (1+) mg/dL (Neg-Trace)
[2023-11-14 02:34] LABS: Bacteria Urine None Seen (None Seen); Hyaline Casts Urine 0-2 /LPF (0-2); Squamous Epithelial Cell Urine 0-2 /HPF (0-2); WBC Urine 0-5 /HPF (0-5)
[2023-11-14 02:40] LABS: RBC Urine 0-2 /HPF (0-2)
== END 2023-11-14 02:33 | disposition home or self-care (01) ==
PROVIDERS: Emergency Provider Emergency Medicine
DX: R55 Syncope and collapse (principal); R11.2 Nausea with vomiting, unspecified; R53.1 Weakness; R19.7 Diarrhea, unspecified
CPT/HCPCS: 80053; 81001; 83690; 83735; 84484; 84702; 85007; 85027; 87502; 93005; 96361; 96374; 96375; 99284; 99285; J1885; J2405

== ENCOUNTER → 2023-11-13 21:10 | Outpatient (BNV) | payer OTHER, SELFPAY | PROVIDERS: Emergency Provider Emergency Medicine; Visit Provider Internal Medicine Cardiovascular Disease | DX: R00.1 Bradycardia, unspecified (principal) | CPT/HCPCS: 93010 ==